=== PATIENT | female | born 1960 | race Caucasian/White ===

== ENCOUNTER 2022-05-26 12:05 | Emergency (ER) | payer MEDICARE ==
[2022-05-26 12:33] VITALS: BP 163/87; PULSE 68; O2SAT 96
--- NOTE | 2022-05-26 12:39 | ERPHSYRPT ---
- History of Present Illness Time Seen by Provider: 05/26/22 12:37 Source: patient Exam Limitations: no limitations Patient Subjective Stated Complaint: pt here for pain to right 4th toe for 3 weeks now, after hitting it on table Triage Nursing Assessment: pt alert, resp easy.skin w/d/p, has slight swelling to 5th right toe, no bruising noted Physician History: pt here for pain to right 4th toe for 3 weeks now, after hitting it on table Method of Injury: direct blow Occurred: last week Quality: constant Severity of Pain-Max: mild Severity of Pain-Current: mild Lower Extremities Pain: 4th toe: right Modifying Factors: Improves With: nothing Associated Symptoms: none Allergies/Adverse Reactions: Penicillins Allergy (Verified 05/26/22 12:33) Home Medications: Fluticasone/Salmeterol 500/50* [Advair 500-50 Diskus] 1 each IH DAILY 05/26/22 [History] Montelukast Sodium 10 mg [Singulair 10 MG] 10 mg PO DAILY 05/26/22 [History] Omeprazole 20 mg PO BID 05/26/22 [History] Pramipexole Di-HCl [Pramipexole Dihydrochloride] 0.25 mg PO DAILY 05/26/22 [History] Pregabalin 100 mg PO DAILY 05/26/22 [History] dilTIAZem HCL [Diltiazem ER] 1 ea DAILY 05/26/22 [History] Hx Tetanus, Diphtheria Vaccination/Date Given: No Hx Influenza Vaccination/Date Given: No Hx Pneumococcal Vaccination/Date Given: No Immunizations Up to Date: Yes Travel Risk - International Travel Have you traveled outside of the country in past 3 weeks: No - Coronavirus Screening Are you exhibiting any of the following symptoms?: No Close contact with a COVID-19 positive Pt in past 14-21 Days: No - Vaccine Status Have you recieved a Covid-19 vaccination: Yes 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[employer] - Vaccination Dates Date of 2cond Vaccination (if applicable): 2020 - Review of Systems Constitutional: No Symptoms Eyes: No Symptoms Ears, Nose, & Throat: No Symptoms Respiratory: No Symptoms Cardiac: No Symptoms Abdominal/Gastrointestinal: No Symptoms Genitourinary Symptoms: No Symptoms Musculoskeletal: Joint Swelling (right foot) - Past Medical History Pertinent Past Medical History: Yes Cardiac History: Arrhythmia - Past Surgical History Past Surgical History: Yes - Social History Smoking Status: Never smoker Exposure to second hand smoke: No Drug Use: none Patient Lives Alone: No - Nursing Vital Signs Nursing Vital Signs: Initial Vital Signs Temperature 98.0 F 05/26/22 12:31 Pulse Rate 68 05/26/22 12:31 Respiratory Rate 18 05/26/22 12:31 Blood Pressure 163/87 05/26/22 12:31 O2 Sat by Pulse Oximetry 96 05/26/22 12:31 Pain Scale Pain Intensity 6 - Physical Exam General Appearance: no apparent distress Eyes, Ears, Nose, Throat Exam: normal ENT inspection Neck Exam: normal inspection Cardiovascular/Respiratory Exam: chest non-tender Gastrointestinal/Abdominal Exam: non-tender Back Exam: normal inspection Hips Exam: bilateral: non-tender Legs Exam: bilateral leg: non-tender Knees Exam: bilateral knee: non-tender Ankle Exam: bilateral ankle: non-tender Foot Exam: right foot: soft tissue tenderness Neuro/Tendon Exam: normal sensation SpO2: 96 - Course Nursing assessment & vital signs reviewed: Yes - Radiology Exams Foot X-ray Interpretation: Reviewed by me, Negative, No Fracture Ordered Tests: Active Orders 24 hr Category Date Time Status FOOT (MINIMUM 3 VIEWS) Stat Exams 05/26/22 12:30 Taken - Progress Progress: improved Counseled pt/family regarding: diagnosis, need for follow-up, rad results - Departure Departure Disposition: Home Clinical Impression: Injury of right foot including toes Qualifiers: Encounter type: initial encounter Qualified Code(s): S99.921A - Unspecified injury of right foot, initial encounter Condition: Stable Critical Care Time: No Referrals: BUCK BAUMANN MD [ACTIVE STAFF] - Follow up/PCP as directed Instructions: Toe Injury (DC) Additional Instructions: Discharge/Care Plan MARIA R LEBRON was seen on 05/26/22 in the Emergency Room. The patient was counseled regarding Diagnosis,Lab results, Imaging studies, need for follow up and when to return to the Emergency Room. Prescriptions given: Discharge Note I have spoken with the patient and/or caregivers. I have explained the patient's condition, diagnosis and treatment plan based on the information available to me at this time. I have answered the patient's and/or caregiver's questions and addressed any concerns. The patient and/or caregivers have as good understanding of the patient's diagnosis, condition and treatment plan as can be expected at this point. The vital signs have been stable. The patient's condition is stable and appropriate for discharge from the emergency department. The patient will pursue further outpatient evaluation with the primary care physician or other designated or consulting physician as outlined in the discharge instructions. The patient and/or caregivers are agreeable to this plan of care and follow-up instructions have been explained in detail. The patient and/or caregivers have received these instruction. The patient/and or caregivers are aware that any significant change in condition or worsening of symptoms should prompt an immediate return to this or the closest emergency department or call 911. MARIA R LEBRON was seen on 05/26/22 n the Emergency Room. At that time you were treated for an emergent condition, during your visit Laboratory, Radiology and/or other procedures may have been ordered. It is very important that you follow-up with your Primary Care Physician within the next 24-48 hours to review your Emergency Room visit and the final results of testing that was ordered. Some test results such as Urine Cultures, Blood Cultures, and other cultures if ordered will not be finalized for 24-48 hours. If you do not have a Primary Care Provider please call the medical records department at [phone] ext [phone] to obtain a copy of your results or you may sign into our patient portal to obtain these results by visiting us @ [email or web address] and completing the following steps: 1. Click on the Patient Portal link 2. Click the Patient Self Enrollment Link to complete the enrollment form and entering your 3. Once the enrollment form is completed you will receive an email with a temporary ID and password at the email address you provided. 4. Next choose a user name and password. Your user name must be at least 4 characters long and your password must be at least 4 characters long. 5. Choose a security question from the list and provide your answer to the question. If you already have signed into the Health Portal you may access your Health Care Information 03/02 by the following steps: 1. Login to our website @ [email or web address] 2. Enter your original user name and password. FAQS The [facility] Health Portal is an online tool that contains your Lab Results, Radiology Reports, Visit History, Discharge Instructions and Health Summary Lab and Radiology Results will not be available for 72 hours on the portal. The Portal is a secure site, passwords are encryted and URLs are re-written so they cannot be copied and pasted. You and authorized family members are the only ones who can access your Portal. Also there is a timeout feature that protects your information if you leave the Portal page open. If you have technical difficulty please use the Contact Us link on the page this will allow you to submit any questions you have regarding the Portal or you may contact the Medical Record Department at [phone] ext [phone].
--- NOTE | 2022-05-26 18:02 | XRAY ---
Indication: Pain. No known injury. Comparison: None 3 nonweightbearing views right foot demonstrates osteopenia and nondisplaced fracture 5th proximal phalanx with soft tissue swelling. No other bony, articular, or soft tissue abnormalities. Comment: Fracture not reported by the interpreting ER clinician. Telephone report was given Dr. Earl at 1756 hrs. on May 26, 2022.
== END 2022-05-26 12:47 | disposition home or self-care (01) ==
LOC: ED 12:05
DX: S99.921A Unspecified injury of right foot, initial encounter (principal); W22.03XA Walked into furniture, initial encounter; Z79.899 Other long term (current) drug therapy
CPT/HCPCS: 73630; 99282

== ENCOUNTER 2022-08-30 07:36 | Day surgery (SDC) | payer MEDICARE ==
[2022-08-30] MEDS ORDERED: CLINDAMYCIN-D5W 900 MG/50 ML*** 900 MG/50 ML BAG IV ONE (07:47)
[2022-08-30] MEDS ORDERED: Lactated Ringers 1,000 ML IV ONE (07:47)
[2022-08-30] MEDS ORDERED: CLINDAMYCIN-D5W 900 MG/50 ML*** 900 MG/50 ML BAG IV STA (07:50)
[2022-08-30] MEDS ORDERED: Lactated Ringers 1,000 ML IV SCH (08:00)
[2022-08-30] MEDS ORDERED: Xylocaine 1% Vial 30 ML PF IJ ONE (08:21)
[2022-08-30] MEDS ORDERED: Marcaine Mpf 0.5% Vial 30 Ml ONE (08:21)
[2022-08-30 08:42] LABS: Hemoglobin 13.3 g/dL (12.0-16.0); Mean Cell Volume 86.8 fL (78-100); Mean Corpuscular Hemoglobin 27.5 pg (26-32); Mean Corpuscular Hgb Concent. 31.7 g/dL (32-36); Mean Platelet Volume 10.7 fL (7.5-11.0); Platelet Count 299 x10^3/uL (150-450); Red Blood Count 4.84 x10^6/uL (4.1-5.4); Red Cell Distribution Width 13.6 % (11.5-14.0); White Blood Count 6.7 x10^3/uL (4.0-10.5)
[2022-08-30 08:55] LABS: ALKALINE PHOSPHATASE 135 U/L (38-126); BLOOD UREA NITROGEN 15 mg/dL (7-17); CHLORIDE 107 mmol/L (98-107); Calcium 8.8 mg/dL (8.4-10.2); Carbon Dioxide 25 mmol/L (22-30); Creatinine 1 0.85 mg/dL (0.52-1.04); EST GLOMERULAR FILTRATION RATE > 60.0 ML/MIN; Glucose 118 mg/dL (74-106); Potassium 4.5 mmol/L (3.5-5.1); SGOT/AST 27 U/L (14-36); SGPT/ALT 20 U/L (0-35); SODIUM 140 mmol/L (137-145)
[2022-08-30] MEDS ORDERED: DIPRIVAN 200 MG/20 ML IV ONE ×4 (08:57→11:10)
[2022-08-30] MEDS ORDERED: SUBLIMAZE 100 MCG/2 ML ONE ×2 (08:58→11:08)
[2022-08-30] MEDS ORDERED: Versed 2 MG/2 ML Injection ONE (08:58)
[2022-08-30] MEDS ORDERED: Xylocaine-Mpf 2% 5 Ml Vial ONE (08:58)
[2022-08-30] MEDS ORDERED: PHENYLEPHRINE HCL ONE (10:23)
--- NOTE | 2022-08-30 11:56 | XRAY ---
Indication: Excision bone left 5th metatarsal. Peroneus brevis tendon transfer to base 5th metatarsal. Intraoperative fluoroscopy provided for 47 seconds. 11 digital spot images submitted for interpretation ultimately demonstrates tunneling base 5th metatarsal with orthopedic button in situ. Correlate with intraoperative findings/report.
[2022-08-30 13:32] VITALS: BP 130/66; PULSE 60; O2SAT 96
--- NOTE | 2022-08-30 14:39 | XRAY ---
47 seconds of fluoroscopy was used in surgery for an excision of bone left 5th metatarsal and peroneus brevis tendon transfer to base 5th metatarsal.
--- NOTE | 2022-09-02 12:54 | OP ---
SURGERY DATE/TIME: 08/30/2022 0958 PREOPERATIVE DIAGNOSES: 1) Left nonunion fifth metatarsal fracture. 2) Pain left foot. 3) Peroneus brevis rupture. POSTOPERATIVE DIAGNOSES: 1) Left nonunion fifth metatarsal fracture. 2) Pain left foot. 3) Peroneus brevis rupture. PROCEDURES: 1) Excision of metatarsal bone. 2) Peroneus brevis tendon advancement with transfer. SURGEON: Dalton Allred DPM. OIL HEATER OPERATOR: None. ANESTHESIA: Monitored anesthesia care with preoperative ankle block. HEMOSTASIS: Thigh tourniquet set to 300 mm of Mercury for 46 total tourniquet minutes. ESTIMATED BLOOD LOSS: Minimal. INJECTABLES: 30 cc of 1:1 mixture of 1% lidocaine plain and 0.5% bupivacaine plain. INDICATION FOR SURGERY: Vickie is a very pleasant 62-year-old female who presented to my service for a fracture of the fifth metatarsal of the left foot. The patient does have a positive history of vaping and discussion in regards to quitting in order to expedite bone healing were provided at a certain point giving her attempt to heal. The patient has had pain over the course of the last several weeks with attempt in transition from delayed healing to nonhealing to potentially show some signs of healing. However at this time the patient has had no success due to developing of healthy callous between those two fragments and has had continued if not worsening pain to the left lower extremity. At this time the patient would like to proceed with surgical intervention. The patient had been discussed the plan and at this time and would like to proceed with surgical intervention. The risk of a potential continued nonunion with the use of a screw in order to fixate as well as calcaneal autograft advantageous to the patient's interest. Discussion with the patient other options was to proceed with removal of the bone fragment and tapering of the peroneus brevis tendon into fifth metatarsal base under tension in order to allow this to heal. The patient understands that she will have to be nonweightbearing approximately six to eight weeks for this to be successful but hopefully this provides relief from her pain which is the desired goal for this procedure. The patient understands all risks, complications and benefits of the procedure including but not limited to infection, hematoma, seroma, possibility of delayed skin healing, nonskin healing. Possibility of sural nerve injury, possibility of failure of surgical intervention, possibility of loss of motor function and catastrophic failure surgical intervention. The patient understands all of this and wishes to proceed. Plenty of time was allowed for her to ask questions which were answered to the patient's apparent satisfaction. It is with this we decided to proceed with surgical intervention. DESCRIPTION OF PROCEDURE AND FINDINGS: The patient is brought into the OR and placed on the OR table in the supine position. General anesthesia was administered and once the patient was sedated a well-padded thigh tourniquet was applied to the patient's left thigh. From this state the patient was repositioned laid in lateral making sure to pad prominent sites. Following this, the left lower extremity was prepped and draped in typical sterile fashion. At this time under fluoroscopic guidance a skin marker was utilized to plan out the surgical incisions prior to inflating the tourniquet. At this time the Esmarch was utilized to exsanguinate the leg and the tourniquet was inflated to 300 mm of Mercury. At this time incision was made in curvilinear fashion to the fracture site and following course of the peroneus brevis tendon. Following this, excision of the fifth metatarsal base was performed this was handed off the field and sent for pathologic assessment under the name "nonunion". Following this the tendon was inspected. There was diseased portion of the tendon distally which was debrided in the process of anchoring the tendon. A FiberLoop was then utilized with BroadBand suture to interlock the peroneus brevis tendon this was then utilized to retubularize the diseased portion of the tendon. Following this a 2.9 mm Tagalog was drilled under fluoroscopic guidance on multiple views and a 1.5 BroadBand suture was utilized to advance the tendon into the drill site in order to get a bone to tendon interface this was performed under tension with a suture on the medial cortex of the fifth metatarsal in order to gain compression in this site. The patient's foot was held in eversion for the remainder of the procedure. Copious amounts of sterile saline were then utilized to flush the surgical site. 4-0 Monocryl was utilized to coapt the subcutaneous edges and 3-0 Nylon was utilized in horizontal mattress-type fashion to coapt the skin. A dressing consisting of Betadine, Adaptic, 4x4, Kerlix and a well-padded posterior splint with Sugar-Tong with the marketing analytics manager slightly shortened was then applied. Tourniquet was let down at this time at 46 total tourniquet minutes. Estimated blood loss was less than 5 cc. The patient was then reversed from anesthesia and returned to the postoperative anesthesia care unit with vital signs stable and vascular status intact. The patient handled the anesthesia as well as the procedure without significant complication. Postoperative orders as indicated in the patient's discharge chart.
== END 2022-08-30 13:55 | disposition home or self-care (01) ==
LOC: SDC 07:36
PROVIDERS: ATTEND Podiatrist Foot & Ankle Surgery
DX: S92.352A Displaced fracture of fifth metatarsal bone, left foot, initial encounter for closed fracture (principal); M79.672 Pain in left foot; S86.312A Strain of muscle(s) and tendon(s) of peroneal muscle group at lower leg level, left leg, initial encounter
CPT/HCPCS: 27658; 28288; 36415; 73630; 76000; 80053; 85027; 93005; C1713; J2001; J2250; J2370; J2704; J3010

== ENCOUNTER 2022-11-01 15:00 | Emergency (ER) | payer MEDICARE ==
--- NOTE | 2022-11-01 15:03 | ERPHSYRPT ---
- History of Present Illness Time Seen by Provider: 11/01/22 15:03 Source: patient Exam Limitations: no limitations Physician History: This is an obese 62-year-old right-handed white female who presents with a 2 to 3-day history of slightly enlarging, tender left volar wrist subcutaneous mass that lies very near to the radial artery at the wrist. Patient has not suffered any recent injury or blood draws from the site. She is never had anything like this before. She has full range of motion. However, she feels this is getting slightly bigger and there is tenderness present. Patient has a history of hypertension, gastroesophageal reflux disease, TIA, peripheral neuropathy, asthma, arrhythmia (on diltiazem) and fibromyalgia. Occurred: days ago Method of Injury: other Quality: aching Severity of Pain-Max: mild Severity of Pain-Current: mild Extremities Pain Location: wrist: left (1.5 diameter subcutaneous mass volar aspect) Modifying Factors: Improves With: movement (Worsens), other (Palpation worsens) Associated Symptoms: none Allergies/Adverse Reactions: Penicillins Allergy (Verified 11/01/22 15:08) Home Medications: Fluticasone/Salmeterol 500/50* [Advair 500-50 Diskus] 1 each IH DAILY 1 07/26/21 [History] Montelukast Sodium 10 mg [Singulair 10 MG] 10 mg PO DAILY 05/26/22 [History] Omeprazole 20 mg PO BID 05/26/22 [History] Pramipexole Di-HCl [Pramipexole Dihydrochloride] 0.25 mg PO TID 05/26/22 [History] Pregabalin 100 mg PO TID 05/26/22 [History] Albuterol 8 gm Mdi Hfa [Ventolin Hfa MDI] 2 puffs IH UD 08/23/22 [History] Cyanocobalamin (Vitamin B-12) [Vitamin B12] 2,500 mcg PO DAILY 08/23/22 [History] Escitalopram Oxalate [Lexapro] 20 mg PO DAILY 08/23/22 [History] Liraglutide [Victoza 2-Karthik] 0.6 mg SQ DAILY 08/23/22 [History] Metoprolol Succinate 50 mg [Toprol Xl 50 MG] 50 mg PO HS 08/23/22 [History] dilTIAZem HCL [Diltiazem 24Hr ER (Xr)] 180 mg PO DAILY 08/23/22 [History] Hx Tetanus, Diphtheria Vaccination/Date Given: No Hx Influenza Vaccination/Date Given: No Hx Pneumococcal Vaccination/Date Given: No Travel Risk - International Travel Have you traveled outside of the country in past 3 weeks: No - Coronavirus Screening Are you exhibiting any of the following symptoms?: No Close contact with a COVID-19 positive Pt in past 14-21 Days: No - Vaccine Status Have you recieved a Covid-19 vaccination: Yes 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[employer] - Vaccination Dates Date of 2cond Vaccination (if applicable): 2020 - Review of Systems Constitutional: No Symptoms Eyes: No Symptoms Ears, Nose, & Throat: No Symptoms Respiratory: No Symptoms Cardiac: No Symptoms Abdominal/Gastrointestinal: No Symptoms Genitourinary Symptoms: No Symptoms Musculoskeletal: Other (Tender 1.5 cm diameter subcutaneous mass in the region of the left radial artery left wrist) Skin: No Symptoms Neurological: No Symptoms Psychological: No Symptoms Endocrine: No Symptoms Hematologic/Lymphatic: No Symptoms Immunological/Allergic: No Symptoms All Other Systems: Reviewed and Negative - Past Medical History Pertinent Past Medical History: Yes Neurological History: Peripheral Neuropathy, TIA ENT History: No Pertinent History Cardiac History: Arrhythmia, Hypertension Respiratory History: Asthma, Bronchitis Endocrine Medical History: Diabetes Type II Musculoskeletal History: Arthritis, Fibromyalgia GI Medical History: GERD, Other History: No Pertinent History Psycho-Social History: Depression Female Reproductive Disorders: No Pertinent History Other Medical History: Patient reports breaking multiple toes L foot. L knee injury with conservative tx including therapy. A-fib. Previous loop recorder which was removed. Back sx x2 (2021 was last procedure) sacral/lumbar fusion. - Past Surgical History Past Surgical History: Yes Neuro Surgical History: No Pertinent History Cardiac: Other Respiratory: No Pertinent History Gastrointestinal: Hernia Repair Genitourinary: No Pertinent History Musculoskeletal: Orthopedic Surgery Female Surgical History: Tubal Ligation Other Surgical History: Back and Hip. implanted cardiac monitoring device,implanted and removed. - Social History Smoking Status: Former smoker Exposure to second hand smoke: No Drug Use: none Patient Lives Alone: No - Nursing Vital Signs Nursing Vital Signs: Initial Vital Signs Temperature 98.4 F 11/01/22 15:09 Pulse Rate 66 11/01/22 15:09 Respiratory Rate 17 11/01/22 15:09 Blood Pressure 141/71 11/01/22 15:09 O2 Sat by Pulse Oximetry 96 11/01/22 15:09 Pain Scale Pain Intensity [Left Wrist] 3 Pain Intensity 3 - Physical Exam General Appearance: no apparent distress, alert, anxiety, obese Eyes, Ears, Nose, Throat Exam: normal ENT inspection, moist mucous membranes Neck Exam: normal inspection, non-tender, supple, full range of motion Cardiovascular/Respiratory Exam: chest non-tender, no respiratory distress Abdominal Exam: non-tender Back Exam: normal inspection Shoulder Exam: normal inspection Elbow/Forearm Exam: normal inspection Wrist Exam: soft tissue tenderness (Left wrist 1.5 cm diameter subcutaneous mass volar aspect with tenderness. No cellulitis or infection. ? Pulsation versus referred pulsation) Hand Exam: normal inspection, non-tender, no evidence of injury, normal ROM Neuro/Tendon Exam: normal sensation, normal motor functions, normal tendon functions, responds to pain, no evidence tendon injury Mental Status Exam: alert, oriented x 3, cooperative Skin Exam: normal color, warm, dry SpO2 Interpretation: normal O2 Delivery: Room Air - Course Nursing assessment & vital signs reviewed: Yes Ordered Tests: Active Orders 24 hr Category Date Time Status EXTREMITY NON VASCULAR [US] Stat Exams 11/01/22 15:37 Ordered - Progress Progress: pain not gone completely Progress Note: 11/01/22 16:03 Ultrasound of the left wrist shows a ganglion cyst with nearby radial artery. No aneurysm present. The impression was provided to be by the substance abuse technician. I did not interpret this study. This patient's medical issue is 1 of low complexity. The level of complexity and the work-up performed is based on review of the patient's past medical history, medication list, medication allergy list, history of present illness and physical findings on examination. The work-up includes venous ultrasound of the left wrist. The report was provided to me by the substance abuse technician. No aneurysm is present. The patient has a ganglion cyst. Discharge instructions is to have the patient follow-up in the [facility] orthopedic clinic on 11/04/2022 at 8 AM. Over the weekend patient may use ice pack, Tylenol and ibuprofen for pain control. Counseled pt/family regarding: diagnosis, need for follow-up, rad results Medical Desision Making - Discussion of managment Reviewed:: Test results Agreed on:: Treatment plan, need for follow-up - Diagnostic Testing Radiological Interpretation: Reviewed by me, Teleradiologist Report - Risk of complications Minimal Risk: Minimal risk of morbidity - Departure Departure Disposition: Home Clinical Impression: Ganglion cyst of volar aspect of left wrist Condition: Stable Critical Care Time: No Referrals: GERALDINE EGAN, [Primary Care Provider] - Follow up/PCP as directed Additional Instructions: Ice pack to area 3 times a day for the next 48 hours. Use Tylenol and ibuprofen for pain control. Follow-up at 8 AM at the [facility] orthopedic clinic on 11/04/2022. It is a walk-in clinic. You do not need to have an appointment.
[2022-11-01 16:14] VITALS: BP 127/61; PULSE 64; O2SAT 97
--- NOTE | 2022-11-01 16:16 | XRAY ---
Indication: Subcutaneous mass. Targeted soft tissue ultrasound lateral left wrist demonstrates 3 tightly clustered subcutaneous cysts, largest 7.5 mm and smallest 4.2 mm. No other solid/cystic mass.
== END 2022-11-01 16:14 | disposition home or self-care (01) ==
LOC: ED 15:00
DX: M67.432 Ganglion, left wrist (principal); M25.532 Pain in left wrist; I10 Essential (primary) hypertension; E11.42 Type 2 diabetes mellitus with diabetic polyneuropathy; Z79.85 Long-term (current) use of injectable non-insulin antidiabetic drugs; Z79.899 Other long term (current) drug therapy
CPT/HCPCS: 76881; 99282

== ENCOUNTER 2023-02-25 05:53 | Day surgery (SDC) | payer MEDICARE ==
[2023-02-25] MEDS ORDERED: Lactated Ringers 1,000 ML IV SCH (06:00)
[2023-02-25 06:28] VITALS: RESP 16
[2023-02-25] MEDS ORDERED: Xylocaine-Mpf 2% 5 Ml Vial ONE (07:34)
[2023-02-25] MEDS ORDERED: DIPRIVAN 200 MG/20 ML IV ONE (07:34)
[2023-02-25 08:10] VITALS: BP 122/50; PULSE 65; TEMP 97.5; O2SAT 95
--- NOTE | 2023-02-25 16:31 | OP ---
SURGERY DATE: 02/25/2023 SURGERY TIME: 732 PREOPERATIVE DIAGNOSIS: 1. GASTROESOPHAGEAL REFLUX. 2. DIABETES. POSTOPERATIVE DIAGNOSIS: 1. DIABETIC GASTROPARESIS. PROCEDURE: 1. Esophagogastroduodenoscopy. SURGEON: Dr. Reich. ANESTHESIA: MAC. Medications given by the Anesthesia Department. BRIEF HISTORY: The patient is a 63 year-old white female with history of diabetes. She reports that food seems to be getting stuck in her stomach and she has had some problems with reflux as well which has been going on for about a year and it is noted in her chart record the patient is taking 325 mg of aspirin as well. The patient was described the risks of the procedure including the risk of perforation, phlebitis, untoward reaction to medication, bleeding, missed lesions, sore throat, and vocal cord injury. The patient verbalized her understanding and desired to have the procedure performed. DESCRIPTION OF PROCEDURE: The patient was given the medications by the Anesthesia Department. She had continuous pulse oximetry, ECG monitoring, and intermittent BP monitoring during the examination. She was placed in the left lateral decubitus position. A bite block was placed and the flexible Olympus gastroscope was used to intubate the oropharynx. A view of the larynx was obtained and was normal. The scope was easily introduced in the esophagus which appeared to be normal throughout its length. The stomach was entered where immediately we saw large amounts of residual mostly liquid materials. We were able to introduce the scope further into the stomach. As we followed between the gastric mucosa and retained food stuffs to the pylorus which was intubated. The duodenum was inspected and found to be normal. The scope was withdrawn towards the stomach. With insufflation, we were able to obtain retroflex view of the stomach which revealed no evidence of any hiatal hernia. No other obvious evidence of mucosal abnormalities was present. The scope was removed from the patient afterwards who tolerated the procedure well and was sent back to outpatient recovery in good condition.
== END 2023-02-25 08:16 | disposition home or self-care (01) ==
LOC: SDC 05:53
PROVIDERS: ATTEND Family Medicine
DX: E11.43 Type 2 diabetes mellitus with diabetic autonomic (poly)neuropathy (principal); K31.84 Gastroparesis; K21.9 Gastro-esophageal reflux disease without esophagitis; E11.9 Type 2 diabetes mellitus without complications
CPT/HCPCS: 82947; J2704

== ENCOUNTER 2023-07-15 13:16 | Observation (INO) | payer MEDICARE ==
[2023-07-15 13:51] LABS: Absolute Neutrophil Ct (ANC) 5.82 x10^3/uL (1.4-6.9); BASOPHIL % 0.4 % (0.0-0.4); Basophil (Absolute #) 0.03 x10^3/uL (0-0.4); Eosinophil (Absolute #) 0.16 x10^3/uL (0-0.5); Hematocrit 44.3 % (35-47); Hemoglobin 14.3 g/dL (12.0-16.0); IMMATURE GRAN # 0.03 x10^3u/L (0.00-0.03); IMMATURE GRAN % 0.4 % (0.00-0.4); Lymphocyte (Absolute #) 1.31 x10^3/uL (1.0-4.6); Lymphocytes % 16.3 % (24.0-44.0); Mean Cell Volume 85.9 fL (78-100); Mean Corpuscular Hemoglobin 27.7 pg (26-32); Mean Corpuscular Hgb Concent. 32.3 g/dL (32-36); Mean Platelet Volume 10.2 fL (7.5-11.0); Monocyte (Absolute #) 0.68 x10^3/uL (0.0-1.3); Monocytes % 8.5 % (0.0-12.0); Neutrophil % 72.4 % (36.0-66.0); Platelet Count 290 x10^3/uL (150-450); Red Blood Count 5.16 x10^6/uL (4.1-5.4); Red Cell Distribution Width 14.2 % (11.5-14.0)
--- NOTE | 2023-07-15 13:55 | ERPHSYRPT ---
- History of Present Illness Time Seen by Provider: 07/15/23 13:22 Source: patient Exam Limitations: no limitations Patient Subjective Stated Complaint: pt states she had a head cold for the past couple days. pt states that today she began to be short of breath Triage Nursing Assessment: pt ambulated into the er; pt is axo x4; c/o SOB; audible wheezing present; rt anterior/ posterior throught wheezing and course lung sounds; SOB, labored breathing; no cough present at time of arrival; afebrile; hypertensive; skin PDW Physician History: Patient is a 63-year-old female history of COPD presents to our ED for evaluatio n of a URI that has progressed into shortness of breath. No chest pain no nausea vomiting or diaphoresis. Symptoms have been progressive. Symptoms are moderate in intensity. Symptoms are worse with exertion symptoms improved with rest. Patient voices no other complaints or concerns at this time. Portions of this note were created with voice recognition technology. There may be grammatical, spelling, punctuation or sound alike errors Timing/Duration: day(s) (3 days) Activities at Onset: activity Severity of Dyspnea-Max: moderate Severity of Dyspnea-Current: mild Possible Cause: unknown cause Modifying Factors: Improves With: activity Associated Symptoms: wheezing Allergies/Adverse Reactions: Penicillins Allergy (Verified 07/15/23 13:17) Home Medications: Fluticasone/Salmeterol 500/50* [Advair 500-50 Diskus] 1 each IH DAILY 05/26/22 [History] Montelukast Sodium 10 mg [Singulair 10 MG] 10 mg PO DAILY 05/26/22 [History] Omeprazole 20 mg PO BID 05/26/22 [History] Pramipexole Di-HCl [Pramipexole Dihydrochloride] 0.25 mg PO TID 05/26/22 [Hi story] Pregabalin 100 mg PO TID 05/26/22 [History] Albuterol 8 gm Mdi Hfa [Ventolin Hfa MDI] 2 puffs IH UD 08/23/22 [History] Escitalopram Oxalate [Lexapro] 20 mg PO DAILY 08/23/22 [History] Liraglutide [Victoza 2-Karthik] 0.6 mg SQ DAILY 08/23/22 [History] Metoprolol Succinate 50 mg [Toprol Xl 50 MG] 50 mg PO HS 08/23/22 [History] dilTIAZem HCL [Diltiazem 24Hr ER (Xr)] 180 mg PO DAILY 08/23/22 [History] Semaglutide [Ozempic] 0.25 mg SQ WEEKLY 07/15/23 [History] Hx Tetanus, Diphtheria Vaccination/Date Given: Yes Hx Influenza Vaccination/Date Given: Yes Hx Pneumococcal Vaccination/Date Given: Yes Travel Risk - International Travel Have you traveled outside of the country in past 3 weeks: No - Coronavirus Screening Are you exhibiting any of the following symptoms?: Yes Symptoms: Fever, Cough: New Onset, Shortness of Breath Close contact with a COVID-19 positive Pt in past 14-21 Days: No - Vaccine Status Have you recieved a Covid-19 vaccination: Yes [employer]: [employer] - Vaccination Dates Date of 2cond Vaccination (if applicable): 2020 - Review of Systems Constitutional: No Symptoms, No Fever, No Chills Eyes: No Symptoms Ears, Nose, & Throat: No Symptoms Respiratory: No Symptoms, No Cough, No Dyspnea Cardiac: No Symptoms, No Chest Pain, No Edema, No Syncope Abdominal/Gastrointestinal: No Symptoms, No Abdominal Pain, No Nausea, No Vomiting, No Diarrhea Genitourinary Symptoms: No Symptoms, No Dysuria Musculoskeletal: No Symptoms, No Back Pain, No Neck Pain Skin: No Symptoms, No Rash Neurological: No Symptoms, No Dizziness, No Focal Weakness, No Sensory Changes Psychological: No Symptoms Endocrine: No Symptoms Hematologic/Lymphatic: No Symptoms Immunological/Allergic: No Symptoms All Other Systems: Reviewed and Negative - Past Medical History Pertinent Past Medical History: Yes Neurological History: Peripheral Neuropathy, TIA ENT History: No Pertinent History Cardiac History: Arrhythmia, Hypertension Respiratory History: Asthma, Bronchitis, COPD Endocrine Medical History: Diabetes Type II Musculoskeletal History: Arthritis, Fibromyalgia GI Medical History: GERD, Other History: No Pertinent History Psycho-Social History: Depression Female Reproductive Disorders: No Pertinent History Other Medical History: Patient reports breaking multiple toes L foot. L knee injury with conservative tx including therapy. A-fib. Previous loop recorder which was removed. Back sx x2 (2021 was last procedure) sacral/lumbar fusion. - Past Surgical History Past Surgical History: Yes Neuro Surgical History: No Pertinent History Cardiac: Other Respiratory: No Pertinent History Gastrointestinal: Hernia Repair Genitourinary: No Pertinent History Musculoskeletal: Orthopedic Surgery Female Surgical History: Tubal Ligation Other Surgical History: Back and Hip. implanted cardiac monitoring device ,implanted and removed. abcess removed in throat - Social History Smoking Status: Former smoker Exposure to second hand smoke: No Drug Use: none Patient Lives Alone: No - Nursing Vital Signs Nursing Vital Signs: Initial Vital Signs Temperature 98.8 F 07/15/23 13:18 Pulse Rate 95 H 07/15/23 13:18 Respiratory Rate 28 H 07/15/23 13:18 Blood Pressure 190/91 07/15/23 13:18 O2 Sat by Pulse Oximetry 97 07/15/23 13:18 Pain Scale Pain Intensity 5 - Physical Exam General Appearance: no apparent distress, alert Eye Exam: PERRL/EOMI Ears, Nose, Throat Exam: hearing grossly normal, normal ENT inspection, normal pharynx Neck Exam: normal inspection, supple, full range of motion Respiratory Exam: diminished breath sounds, rhonchi, wheezing Cardiovascular/Chest Exam: normal heart sounds, regular rate/rhythm Abdominal/Gastrointestinal Exam: soft, No tenderness, No distention, No mass Extremity Exam: non-tender, normal range of motion, normal inspection, no calf tenderness, no pedal edema Neurologic Exam: alert, oriented x 3, cooperative, glassware verifier II-XII nml as tested, sensation nml, No motor deficits Skin Exam: normal color, warm, No dry Lymphatic Exam: No adenopathy SpO2 Interpretation: normal SpO2: 97 O2 Delivery: Room Air - Course Nursing assessment & vital signs reviewed: Yes EKG Interpreted by Me: RATE (89), Sinus Rhythm, NORMAL AXIS, NORMAL INTERVALS - CT Exams Chest CT Interpretation: Tele-radiologist Report (Negative for PE. Left lower lobe opacity, fatty liver, splenomegaly small hiatal hernia atherosclerotic disease bony degenerative changes) Ordered Tests: Active Orders 24 hr Category Date Time Status Web Applications Architect STAT Care 07/15/23 13:23 Active EKG-ER Only STAT Care 07/15/23 13:23 Active IV Insertion STAT Care 07/15/23 13:23 Active Pulse Oximetry (ED) STAT Care 07/15/23 13:23 Active CHEST WITH CONTRAST [CT] Stat Exams 07/15/23 14:15 Completed BLOOD CULTURE Stat Lab 07/15/23 13:47 Received CBC W DIFF Stat Lab 07/15/23 13:35 Completed CMP Stat Lab 07/15/23 13:35 Completed D-DIMER QUANTITATIVE Stat Lab 07/15/23 13:35 Completed NT PRO BNPII Stat Lab 07/15/23 13:35 Completed TROPONIN Q4H Lab 07/15/23 13:35 Completed TROPONIN Q4H Lab 07/15/23 17:30 Ordered TROPONIN Q4H Lab 07/15/23 21:30 Ordered UA W/RFX UR CULTURE Stat Lab 07/15/23 15:27 Ordered Transfer Order Routine Transfer 07/15/23 Ordered Medication Summary Generic Name Dose Route Start Last Admin Trade Name Freq PRN Reason Stop Dose Admin Doxycycline Hyclate 100 mg/ 100 mls @ 100 mls/hr 07/15/23 22:00 Dextrose IV 08/14/23 21:59 Q12HT SIRISHA Discontinued Medications Generic Name Dose Route Start Last Admin Trade Name Freq PRN Reason Stop Dose Admin Albuterol/Ipratropium 3 ml 07/15/23 15:22 07/15/23 15:43 Ipratropium/Albuterol Sulfate 3 Ml Ampul.Neb IH 07/15/23 15:23 3 ml STAT ONE Administration Albuterol/Ipratropium Confirm 07/15/23 15:39 Ipratropium/Albuterol Sulfate 3 Ml Ampul.Neb Administered 07/15/23 15:40 Dose 3 ml IH .STK-MED ONE Methylprednisolone Sodium 0 mg 07/15/23 15:21 07/15/23 15:28 Succinate 125 mg/ Sterile IV 07/15/23 15:22 125 mg Water 2 ml STAT ONE Administration Methylprednisolone Sodium Succinate Confirm 07/15/23 15:25 Methylprednis Sod Succ 125 Mg/2 Ml Vial Administered 07/15/23 15:26 Dose 125 mg .ROUTE .STK-MED ONE Sterile Water Confirm 07/15/23 15:25 Water For Injection,Sterile 10 Ml Vial Administered 07/15/23 15:26 Dose 10 ml IJ .STK-MED ONE Lab/Rad Data: Laboratory Result Diagrams 07/15/23 13:35 07/15/23 13:35 Laboratory Results 07/15/23 07/15/23 07/15/23 Range/Units 13:41 13:35 13:35 WBC (4.0-10.5) x10^3/uL RBC (4.1-5.4) x10^6/uL Hgb (12.0-16.0) g/dL Hct (35-47) % MCV (78-100) fL MCH (26-32) pg MCHC (32-36) g/dL RDW (11.5-14.0) % Plt Count (150-450) x10^3/uL MPV (7.5-11.0) fL Gran % (36.0-66.0) % Immature Gran % (Auto) (0.00-0.4) % Nucleat RBC Rel Count (0.00-0.1) % Eos # (Auto) (0-0.5) x10^3/uL Immature Gran # (Auto) (0.00-0.03) x10^3u/L Absolute Lymphs (auto) (1.0-4.6) x10^3/uL Absolute Monos (auto) (0.0-1.3) x10^3/uL Absolute Nucleated RBC (0.00-0.01) x10^3u/L Lymphocytes % (24.0-44.0) % Monocytes % (0.0-12.0) % Eosinophils % (0.00-5.0) % Basophils % (0.0-0.4) % Absolute Granulocytes (1.4-6.9) x10^3/uL Basophils # (0-0.4) x10^3/uL D-Dimer 0.90 H* (0.0-0.50) mg/L Sodium (137-145) mmol/L Potassium (3.5-5.1) mmol/L Chloride (98-107) mmol/L Carbon Dioxide (22-30) mmol/L Anion Gap (5-15) MEQ/L BUN (7-17) mg/dL Creatinine (0.52-1.04) mg/dL Estimated GFR ML/MIN Glucose (74-106) mg/dL Calcium (8.4-10.2) mg/dL Total Bilirubin (0.2-1.3) mg/dL AST (14-36) U/L ALT (0-35) U/L Alkaline Phosphatase (38-126) U/L Troponin I < 0.012 (0.000-0.034) ng/mL NT-Pro-B Natriuret Pep (<300) pg/mL Serum Total Protein (6.3-8.2) g/dL Albumin (3.5-5.0) g/dL Influenza Type A Ag NEGATIVE (NEGATIVE) Influenza Type B Ag NEGATIVE (NEGATIVE) RSV (PCR) NEGATIVE (NEGATIVE) SARS-CoV-2 (PCR) NEGATIVE (NEGATIVE) 07/15/23 07/15/23 Range/Units 13:35 13:35 WBC 8.0 (4.0-10.5) x10^3/uL RBC 5.16 (4.1-5.4) x10^6/uL Hgb 14.3 (12.0-16.0) g/dL Hct 44.3 (35-47) % MCV 85.9 (78-100) fL MCH 27.7 (26-32) pg MCHC 32.3 (32-36) g/dL RDW 14.2 H (11.5-14.0) % Plt Count 290 (150-450) x10^3/uL MPV 10.2 (7.5-11.0) fL Gran % 72.4 H (36.0-66.0) % Immature Gran % (Auto) 0.4 (0.00-0.4) % Nucleat RBC Rel Count 0.0 (0.00-0.1) % Eos # (Auto) 0.16 (0-0.5) x10^3/uL Immature Gran # (Auto) 0.03 (0.00-0.03) x10^3u/L Absolute Lymphs (auto) 1.31 (1.0-4.6) x10^3/uL Absolute Monos (auto) 0.68 (0.0-1.3) x10^3/uL Absolute Nucleated RBC 0.00 (0.00-0.01) x10^3u/L Lymphocytes % 16.3 L (24.0-44.0) % Monocytes % 8.5 (0.0-12.0) % Eosinophils % 2.0 (0.00-5.0) % Basophils % 0.4 (0.0-0.4) % Absolute Granulocytes 5.82 (1.4-6.9) x10^3/uL Basophils # 0.03 (0-0.4) x10^3/uL D-Dimer (0.0-0.50) mg/L Sodium 138 (137-145) mmol/L Potassium 3.7 (3.5-5.1) mmol/L Chloride 104 (98-107) mmol/L Carbon Dioxide 23 (22-30) mmol/L Anion Gap 14.1 (5-15) MEQ/L BUN 8 (7-17) mg/dL Creatinine 0.87 (0.52-1.04) mg/dL Estimated GFR 74.8 ML/MIN Glucose 110 H (74-106) mg/dL Calcium 9.3 (8.4-10.2) mg/dL Total Bilirubin 0.30 (0.2-1.3) mg/dL AST 37 H (14-36) U/L ALT 26 (0-35) U/L Alkaline Phosphatase 140 H (38-126) U/L Troponin I (0.000-0.034) ng/mL NT-Pro-B Natriuret Pep 23.1 (<300) pg/mL Serum Total Protein 7.8 (6.3-8.2) g/dL Albumin 4.3 (3.5-5.0) g/dL Influenza Type A Ag (NEGATIVE) Influenza Type B Ag (NEGATIVE) RSV (PCR) (NEGATIVE) SARS-CoV-2 (PCR) (NEGATIVE) - Progress Progress: improved Air Movement: good Progress Note: Patient is a 63-year-old female presents to our emergency department for evalua tion of shortness of breath. Physical exam revealed diminished breath sounds coarse breath sounds and wheezing. D-dimer positive. CTA chest negative for PE. However a left lower lobe interstitial opacity was observed. This is likely a forming pneumonia. EKG reveals sinus rhythm. CBC CMP nonremarkable. COVID-negative. Troponin negative. Treatments include DuoNeb, doxycycline antibiotic and Solu-Medrol. Case discussed with hospitalist at 3:30 PM who accepts admission to observation. Plan of care discussed with patient. She agrees to admission to [facility] for further evaluation and treatment. Portions of this note were created with voice recognition technology. There may be grammatical, spelling, punctuation or sound alike errors Complexity of problem addressed is moderate acute complicated No critical care time Complex of data reviewed and analyzed extensive. Test ordered test reviewed. Results analyzed and correlated clinically with history and physical examination. Management discussed with hospitalist who accepts admission to observation. Risk of complication and a risk morbidity/mortality of patient management is high. Patient will require hospitalization for further evaluation and treatment. Vital stable. Time spent to admit patient is approximately 20 minutes. Plan of care established for shared decision making. No social determinants of health present impede follow-up. Portions of this note were created with voice recognition technology. There may be grammatical, spelling, punctuation or sound alike errors 07/15/23 16:02 Blood Culture(s) Obtained: Yes Antibiotics given: Yes Discussed with DrDavid: Radha Will see patient in: hospital (observation) Counseled pt/family regarding: lab results, diagnosis, rad results - Departure Departure Disposition: Observation Clinical Impression: COPD exacerbation, Shortness of breath, Atherosclerotic disease, Hiatal hernia, Left lower lobe opacity, Fatty liver, Splenomegaly Condition: Stable Critical Care Time: No Referrals: GERALDINE EGAN DO [NON-STAFF PHY W/O PRIVILEGES] - Follow up/PCP as directed Instructions: Chronic Obstructive Pulmonary Disease
[2023-07-15 14:14] LABS: ALBUMIN 4.3 g/dL (3.5-5.0); ANION GAP 14.1 MEQ/L (5-15); BILIRUBIN,TOTAL 0.3 mg/dL (0.2-1.3); Calcium 9.3 mg/dL (8.4-10.2); Creatinine 1 0.87 mg/dL (0.52-1.04); EST GLOMERULAR FILTRATION RATE 74.8 ML/MIN; NT PRO BNPII 23.1 pg/mL (<300); Potassium 3.7 mmol/L (3.5-5.1); Total Protein 7.8 g/dL (6.3-8.2)
[2023-07-15 14:26] LABS: INFLUENZA A NEGATIVE (NEGATIVE); INFLUENZA B NEGATIVE (NEGATIVE); RESPIRATORY SYNCTIAL VIRUS NEGATIVE (NEGATIVE); SARS-CoV-2 Xpert Express NEGATIVE (NEGATIVE)
--- NOTE | 2023-07-15 15:14 | XRAY ---
Indication: Short of breath. Elevated d-dimer. Multiple contiguous axial images obtained through the chest using 80 cc Isovue 370 contrast and PE protocol. Impression: None Good opacification of the pulmonary arteries including lobar and segmental branches. No pulmonary embolus. Heart not enlarged. Aorta minimally arteriosclerotic without aneurysm/dissection. No pathologic mediastinal/hilar lymphadenopathy. Small hiatal hernia. Lungs demonstrates minimal left lower lobe interstitial opacities without consolidation or large effusion. Elsewhere bilateral mid to lower lung subsegmental atelectasis/scarring. Bony thorax intact with osteopenia and mild degenerative changes throughout the spine. Limited upper abdomen demonstrates fatty liver, 15 cm splenomegaly, and cholecystectomy. Impression: 1. Negative pulmonary embolus. 2. Minimal left lower lobe interstitial opacities. Rule out inflammatory/infectious process clinically. 3. Chronic findings including arteriosclerotic disease, hiatal hernia, fatty liver, splenomegaly, and chronic bony findings.
[2023-07-15] MEDS ORDERED: solu-MEDROL 125 MG, Sterile H2O 10 ml 2 ML IV ONE ×2 (15:21)
[2023-07-15] MEDS ORDERED: DUONEB 0.5-3 MG/3 ml Neb IH ONE ×3 (15:22→19:02)
[2023-07-15] MEDS ORDERED: Sterile H2O 10 ml IJ ONE (15:25)
[2023-07-15] MEDS ORDERED: solu-MEDROL ONE (15:25)
[2023-07-15 16:13] LABS: ADD URINE CULTURE? NO (NO); Appearance Clear (Clear); Bacteria Rare /HPF (None Seen); Bilirubin Negative (Negative); Blood Negative (Negative); Epithelial Cells None Seen /HPF (None Seen); Glucose, Urine Negative (Negative); Hyaline Casts NONE SEEN /LPF (0-2); Ketones Negative (Negative); Leukocyte Esterase Negative (Negative); Nitrite Negative (Negative); Protein,Urine Dip Negative (Negative); RBC 0-2 /HPF (0-5); Specific Gravity >=1.030 (1.005-1.030)
--- NOTE | 2023-07-15 16:52 | PCM.HP ---
History of Present Illness - Chief Complaint Chief Complaint: COPD exacerbation Date: 07/15/23 History of Present Illness: is a 63 year old female with PMHX of peripheral neuropathy, COPD, TIA, arrythmia, HTN, asthma, Bronchitis, COPd, Type II DM< arthritis, Fibromyalgia, GERD, depression, and a-fib. She presented to our ED for evaluation of a URI that has progressed into shortness of breath. THis has been ongoing for 3 days, sxs worsened with activity and deep breath. No chest pain no nausea vomiting or diaphoresis. Symptoms have been progressive. Symptoms are moderate in intensity. Symptoms improved with rest. [id number] slightly evelated and CT was negative for PE but + for LLL infiltrate. Antibiotics, steroids, and breathing tx gave in ER. She is c/o of a H/A. She denies any further concerns at this time. - Review of Systems Constitutional: No Fever, No Chills Eyes: No Symptoms Ears, Nose, & Throat: No Symptoms Respiratory: Short Of Breath, No Cough Cardiac: No Chest Pain, No Edema, No Syncope Abdominal/Gastrointestinal: No Abdominal Pain, No Nausea, No Vomiting, No Diarr hea Genitourinary Symptoms: No Dysuria Musculoskeletal: No Back Pain, No Neck Pain Skin: No Rash Neurological: Headache, No Dizziness, No Focal Weakness, No Sensory Changes Psychological: No Symptoms Endocrine: No Symptoms Hematologic/Lymphatic: No Symptoms Immunological/Allergic: No Symptoms Medications & Allergies Home Medications: Home Medication List Fluticasone/Salmeterol 500/50* [Advair 500-50 Diskus] 1 each IH DAILY 05/26/22 [History Confirmed 07/15/23] Montelukast Sodium 10 mg [Singulair 10 MG] 10 mg PO DAILY 05/26/22 [History Confirmed 07/15/23] Omeprazole 20 mg PO BID 05/26/22 [History Confirmed 07/15/23] Pramipexole Di-HCl [Pramipexole Dihydrochloride] 0.25 mg PO TID 05/26/22 [History Confirmed 07/15/23] Pregabalin 100 mg PO TID 05/26/22 [History Confirmed 07/15/23] Albuterol 8 gm Mdi Hfa [Ventolin Hfa MDI] 2 puffs IH UD 08/23/22 [History Confirmed 07/15/23] Escitalopram Oxalate [Lexapro] 20 mg PO DAILY 08/23/22 [History Confirmed 07/15/23] Liraglutide [Victoza 2-Karthik] 0.6 mg SQ DAILY 08/23/22 [History Confirmed 07/15/23] Metoprolol Succinate 50 mg [Toprol Xl 50 MG] 50 mg PO HS 08/23/22 [History Confirmed 07/15/23] dilTIAZem HCL [Diltiazem 24Hr ER (Xr)] 180 mg PO DAILY 08/23/22 [History Confirmed 07/15/23] Semaglutide [Ozempic] 0.25 mg SQ WEEKLY 07/15/23 [History Confirmed 07/15/23] Allergies/Adverse Reactions: Allergies Allergy/AdvReac Type Severity Reaction Status Date / Time Penicillins Allergy Verified 07/15/23 13:17 - Past Medical History Past Medical History: Yes Neurological History: Peripheral Neuropathy, TIA ENT History: No Pertinent History Cardiac History: Arrhythmia, Hypertension Respiratory History: Asthma, Bronchitis, COPD Endocrine Medical History: Diabetes Type II Musculoskelatal History: Arthritis, Fibromyalgia GI Medical History: GERD, Other History: No Pertinent History Pyscho-Social History: Depression Reproductive Disorders: No Pertinent History Comment: Patient reports breaking multiple toes L foot. L knee injury with conservative tx including therapy. A-fib. Previous loop recorder which was removed. Back sx x2 (2021 was last procedure) sacral/lumbar fusion. - Past Surgical History Past Surgical History: Yes Neuro Surgical History: No Pertinent History Cardiac History: Other Respiratory Surgery: No Pertinent History GI Surgical History: Hernia Repair Genitourinary Surgical Hx: No Pertinent History Musculskeletal Surgical Hx: Orthopedic Surgery Female Surgical History: Tubal Ligation Other Surgical History: Back and Hip. implanted cardiac monitoring device,implanted and removed. abcess removed in throat - Social History Smoking Status: Former smoker Exposure to second hand smoke: No Alcohol: None Drug Use: none - Physical Exam Vital Signs: Vital Signs - 24 hr Temp Pulse Resp BP BP Pulse Ox 07/15/23 16:06 97 07/15/23 15:46 80 18 96 07/15/23 15:30 77 26 H 138/88 96 07/15/23 15:20 82 20 97 07/15/23 15:10 75 20 96 07/15/23 15:05 85 15 95 07/15/23 14:30 122/69 07/15/23 14:00 87 20 132/92 95 07/15/23 13:42 97 07/15/23 13:31 89 24 136/69 97 07/15/23 13:18 98.8 F 95 H 24 190/91 97 General Appearance: no apparent distress, alert Neurologic Exam: alert, oriented x 3, cooperative, normal mood/affect, nml cerebellar function, nml station & gait, sensation nml, No motor deficits Eye Exam: PERRL/EOMI, eyes nml inspection Ears, Nose, Throat Exam: normal ENT inspection, TMs normal, pharynx normal, arpita st mucous membranes Neck Exam: normal inspection, non-tender, supple, full range of motion Respiratory Exam: diminished breath sounds (LLL), No respiratory distress Cardiovascular Exam: regular rate/rhythm, normal heart sounds, normal peripheral pulses Gastrointestinal/Abdomen Exam: soft, normal bowel sounds, No tenderness, No mass Back Exam: normal inspection, normal range of motion, No CVA tenderness, No vertebral tenderness Extremity Exam: normal inspection, normal range of motion, pelvis stable Skin Exam: normal color, warm, dry, No rash Lymphatic Exam: No adenopathy Results - Labs Lab/Micro Results: Lab Results-Last 24 Hours 07/15/23 07/15/23 07/15/23 Range/Units 13:35 13:35 13:35 WBC 8.0 (4.0-10.5) x10^3/uL RBC 5.16 (4.1-5.4) x10^6/uL Hgb 14.3 (12.0-16.0) g/dL Hct 44.3 (35-47) % MCV 85.9 (78-100) fL MCH 27.7 (26-32) pg MCHC 32.3 (32-36) g/dL RDW 14.2 H (11.5-14.0) % Plt Count 290 (150-450) x10^3/uL MPV 10.2 (7.5-11.0) fL Gran % 72.4 H (36.0-66.0) % Immature Gran % (Auto) 0.4 (0.00-0.4) % Nucleat RBC Rel Count 0.0 (0.00-0.1) % Eos # (Auto) 0.16 (0-0.5) x10^3/uL Immature Gran # (Auto) 0.03 (0.00-0.03) x10^3u/L Absolute Lymphs (auto) 1.31 (1.0-4.6) x10^3/uL Absolute Monos (auto) 0.68 (0.0-1.3) x10^3/uL Absolute Nucleated RBC 0.00 (0.00-0.01) x10^3u/L Lymphocytes % 16.3 L (24.0-44.0) % Monocytes % 8.5 (0.0-12.0) % Eosinophils % 2.0 (0.00-5.0) % Basophils % 0.4 (0.0-0.4) % Absolute Granulocytes 5.82 (1.4-6.9) x10^3/uL Basophils # 0.03 (0-0.4) x10^3/uL D-Dimer 0.90 H* (0.0-0.50) mg/L Sodium 138 (137-145) mmol/L Potassium 3.7 (3.5-5.1) mmol/L Chloride 104 (98-107) mmol/L Carbon Dioxide 23 (22-30) mmol/L Anion Gap 14.1 (5-15) MEQ/L BUN 8 (7-17) mg/dL Creatinine 0.87 (0.52-1.04) mg/dL Estimated GFR 74.8 ML/MIN Glucose 110 H (74-106) mg/dL POC Glucometer (74 to 106) mg/dL Calcium 9.3 (8.4-10.2) mg/dL Total Bilirubin 0.30 (0.2-1.3) mg/dL AST 37 H (14-36) U/L ALT 26 (0-35) U/L Alkaline Phosphatase 140 H (38-126) U/L Troponin I (0.000-0.034) ng/mL NT-Pro-B Natriuret Pep 23.1 (<300) pg/mL Serum Total Protein 7.8 (6.3-8.2) g/dL Albumin 4.3 (3.5-5.0) g/dL Urine Color (Yellow) Urine Appearance (Clear) Urine pH (4.6-8.0) Ur Specific Ellinger (1.005-1.030) Urine Protein (Negative) Urine Glucose (UA) (Negative) mg/dL Urine Ketones (Negative) Urine Blood (Negative) Urine Nitrite (Negative) Urine Bilirubin (Negative) Urine Urobilinogen (0.2) mg/dL Ur Leukocyte Esterase (Negative) U Hyaline Cast (Auto) (0-2) /LPF Urine Microscopic RBC (0-5) /HPF Urine Microscopic WBC (0-5) /HPF Ur Epithelial Cells (None Seen) /HPF Urine Bacteria (None Seen) /HPF Urine Culture Reflexed (NO) Influenza Type A Ag (NEGATIVE) Influenza Type B Ag (NEGATIVE) RSV (PCR) (NEGATIVE) SARS-CoV-2 (PCR) (NEGATIVE) 07/15/23 07/15/23 07/15/23 Range/Units 13:35 13:41 15:27 WBC (4.0-10.5) x10^3/uL RBC (4.1-5.4) x10^6/uL Hgb (12.0-16.0) g/dL Hct (35-47) % MCV (78-100) fL MCH (26-32) pg MCHC (32-36) g/dL RDW (11.5-14.0) % Plt Count (150-450) x10^3/uL MPV (7.5-11.0) fL Gran % (36.0-66.0) % Immature Gran % (Auto) (0.00-0.4) % Nucleat RBC Rel Count (0.00-0.1) % Eos # (Auto) (0-0.5) x10^3/uL Immature Gran # (Auto) (0.00-0.03) x10^3u/L Absolute Lymphs (auto) (1.0-4.6) x10^3/uL Absolute Monos (auto) (0.0-1.3) x10^3/uL Absolute Nucleated RBC (0.00-0.01) x10^3u/L Lymphocytes % (24.0-44.0) % Monocytes % (0.0-12.0) % Eosinophils % (0.00-5.0) % Basophils % (0.0-0.4) % Absolute Granulocytes (1.4-6.9) x10^3/uL Basophils # (0-0.4) x10^3/uL D-Dimer (0.0-0.50) mg/L Sodium (137-145) mmol/L Potassium (3.5-5.1) mmol/L Chloride (98-107) mmol/L Carbon Dioxide (22-30) mmol/L Anion Gap (5-15) MEQ/L BUN (7-17) mg/dL Creatinine (0.52-1.04) mg/dL Estimated GFR ML/MIN Glucose (74-106) mg/dL POC Glucometer (74 to 106) mg/dL Calcium (8.4-10.2) mg/dL Total Bilirubin (0.2-1.3) mg/dL AST (14-36) U/L ALT (0-35) U/L Alkaline Phosphatase (38-126) U/L Troponin I < 0.012 (0.000-0.034) ng/mL NT-Pro-B Natriuret Pep (<300) pg/mL Serum Total Protein (6.3-8.2) g/dL Albumin (3.5-5.0) g/dL Urine Color Yellow (Yellow) Urine Appearance Clear (Clear) Urine pH 5.0 (4.6-8.0) Ur Specific Ellinger >=1.030 A (1.005-1.030) Urine Protein Negative (Negative) Urine Glucose (UA) Negative (Negative) mg/dL Urine Ketones Negative (Negative) Urine Blood Negative (Negative) Urine Nitrite Negative (Negative) Urine Bilirubin Negative (Negative) Urine Urobilinogen 1.0 A (0.2) mg/dL Ur Leukocyte Esterase Negative (Negative) U Hyaline Cast (Auto) NONE SEEN (0-2) /LPF Urine Microscopic RBC 0-2 (0-5) /HPF Urine Microscopic WBC 6-10 A (0-5) /HPF Ur Epithelial Cells None Seen (None Seen) /HPF Urine Bacteria Rare A (None Seen) /HPF Urine Culture Reflexed NO (NO) Influenza Type A Ag NEGATIVE (NEGATIVE) Influenza Type B Ag NEGATIVE (NEGATIVE) RSV (PCR) NEGATIVE (NEGATIVE) SARS-CoV-2 (PCR) NEGATIVE (NEGATIVE) 07/15/23 Range/Units 16:35 WBC (4.0-10.5) x10^3/uL RBC (4.1-5.4) x10^6/uL Hgb (12.0-16.0) g/dL Hct (35-47) % MCV (78-100) fL MCH (26-32) pg MCHC (32-36) g/dL RDW (11.5-14.0) % Plt Count (150-450) x10^3/uL MPV (7.5-11.0) fL Gran % (36.0-66.0) % Immature Gran % (Auto) (0.00-0.4) % Nucleat RBC Rel Count (0.00-0.1) % Eos # (Auto) (0-0.5) x10^3/uL Immature Gran # (Auto) (0.00-0.03) x10^3u/L Absolute Lymphs (auto) (1.0-4.6) x10^3/uL Absolute Monos (auto) (0.0-1.3) x10^3/uL Absolute Nucleated RBC (0.00-0.01) x10^3u/L Lymphocytes % (24.0-44.0) % Monocytes % (0.0-12.0) % Eosinophils % (0.00-5.0) % Basophils % (0.0-0.4) % Absolute Granulocytes (1.4-6.9) x10^3/uL Basophils # (0-0.4) x10^3/uL D-Dimer (0.0-0.50) mg/L Sodium (137-145) mmol/L Potassium (3.5-5.1) mmol/L Chloride (98-107) mmol/L Carbon Dioxide (22-30) mmol/L Anion Gap (5-15) MEQ/L BUN (7-17) mg/dL Creatinine (0.52-1.04) mg/dL Estimated GFR ML/MIN Glucose (74-106) mg/dL POC Glucometer 115 H (74 to 106) mg/dL Calcium (8.4-10.2) mg/dL Total Bilirubin (0.2-1.3) mg/dL AST (14-36) U/L ALT (0-35) U/L Alkaline Phosphatase (38-126) U/L Troponin I (0.000-0.034) ng/mL NT-Pro-B Natriuret Pep (<300) pg/mL Serum Total Protein (6.3-8.2) g/dL Albumin (3.5-5.0) g/dL Urine Color (Yellow) Urine Appearance (Clear) Urine pH (4.6-8.0) Ur Specific Ellinger (1.005-1.030) Urine Protein (Negative) Urine Glucose (UA) (Negative) mg/dL Urine Ketones (Negative) Urine Blood (Negative) Urine Nitrite (Negative) Urine Bilirubin (Negative) Urine Urobilinogen (0.2) mg/dL Ur Leukocyte Esterase (Negative) U Hyaline Cast (Auto) (0-2) /LPF Urine Microscopic RBC (0-5) /HPF Urine Microscopic WBC (0-5) /HPF Ur Epithelial Cells (None Seen) /HPF Urine Bacteria (None Seen) /HPF Urine Culture Reflexed (NO) Influenza Type A Ag (NEGATIVE) Influenza Type B Ag (NEGATIVE) RSV (PCR) (NEGATIVE) SARS-CoV-2 (PCR) (NEGATIVE) - Radiology Impressions Radiology Exams & Impressions: Radiology Procedures Category Date Time Status CHEST WITH CONTRAST [CT] Stat Exams 07/15/23 14:15 Completed Assessment/Plan (1) Pneumonia Current Visit: Yes Status: Acute Assessment & Plan: - as seen on CT - D-Dimer 0.90- most likely r/t pneumonia - CT with IV contrast 07/15/23 Impression: 1. Negative pulmonary embolus. 2. Minimal left lower lobe interstitial opacities. Rule out inflammatory/infectious process clinically. 3. Chronic findings including arteriosclerotic disease, hiatal hernia, fatty liver, splenomegaly, and chronic bony findings. - Levaquin 750mg daily IV - oral prednisone - duonebs - RA 97% - Flu/COVID/RSV negative - BC x2 - tele Code(s): J18.9 - PNEUMONIA, UNSPECIFIED ORGANISM (2) COPD exacerbation Current Visit: Yes Status: Acute Assessment & Plan: - antibiotocs, steriods, duonebs - RA- 97% Code(s): J44.1 - CHRONIC OBSTRUCTIVE PULMONARY DISEASE W (ACUTE) EXACERBATION (3) Type II diabetes mellitus Current Visit: Yes Status: Acute Assessment & Plan: - ADA diet - S/S insulin with accuchecks ac/hs (4) Obesity (BMI 30-39.9) Current Visit: Yes Status: Acute Assessment & Plan: - advised ADA diet plan and exercise. VTE: lovenox PPI: omeprazole Next of kin:Juan Gomes [phone] Code status: D/c plan: 1-2 days Code(s): E66.9 - OBESITY, UNSPECIFIED
[2023-07-15] MEDS ORDERED: TYLENOL 325 MG PO PRN (17:04)
[2023-07-15] MEDS ORDERED: HUMALOG SQ PRN (17:20)
[2023-07-15] MEDS ORDERED: Ventolin Hfa MDI IH SCH (17:30)
[2023-07-15] MEDS ORDERED: LEVOFLOXACIN 750MG/150ML D5W 750 MG/150 ML BAG IV SCH (18:00)
[2023-07-15] MEDS ORDERED: DUONEB 0.5-3 MG/3 ml Neb IH SCH (19:00)
[2023-07-15] MEDS: Advair Hfa 230/21 Mcg COMMON CANISTER IH SCH (19:17)
[2023-07-15] MEDS: DUONEB 0.5-3 MG/3 ml Neb IH SCH (19:17)
[2023-07-15] MEDS: DELTASONE 20 MG PO SCH (21:09)
[2023-07-15] MEDS: LYRICA 100MG PO SCH (21:09)
[2023-07-15] MEDS ORDERED: VIBRAMYCIN 100 MG*** 100 MG in Dextrose 5%/Water IV Soln. 100ML PLUS BAG 100 ML IV SCH (22:00)
[2023-07-15] MEDS ORDERED: Toprol Xl 50 MG PO SCH (22:00)
[2023-07-15] MEDS ORDERED: Mirapex 0.5 MG Tablet PO SCH (22:00)
[2023-07-15] MEDS ORDERED: NON-FORMULARY ITEM (Omeprazole [Omeprazole] 20 MG Capsule.Dr) PO SCH (22:00)
[2023-07-15] MEDS ORDERED: NON-FORMULARY ITEM (Pramipexole Di-Hcl [Pramipexole Dihydrochloride] 0.25 MG Tablet) PO SCH (22:00)
[2023-07-16 04:54] LABS: Hematocrit 44.9 % (35-47); Hemoglobin 14.4 g/dL (12.0-16.0); Mean Cell Volume 86.8 fL (78-100); Mean Corpuscular Hemoglobin 27.9 pg (26-32); Mean Corpuscular Hgb Concent. 32.1 g/dL (32-36); Mean Platelet Volume 10.1 fL (7.5-11.0); Platelet Count 335 x10^3/uL (150-450); Red Blood Count 5.17 x10^6/uL (4.1-5.4); Red Cell Distribution Width 14.3 % (11.5-14.0); White Blood Count 8.5 x10^3/uL (4.0-10.5)
[2023-07-16 06:08] LABS: ALBUMIN 4.4 g/dL (3.5-5.0); ANION GAP 14.4 MEQ/L (5-15); BILIRUBIN,TOTAL 0.3 mg/dL (0.2-1.3); Calcium 9.8 mg/dL (8.4-10.2); Creatinine 1 0.85 mg/dL (0.52-1.04); EST GLOMERULAR FILTRATION RATE 76.9 ML/MIN; Potassium 4.3 mmol/L (3.5-5.1); Total Protein 8.1 g/dL (6.3-8.2)
[2023-07-16] MEDS ORDERED: DUONEB 0.5-3 MG/3 ml Neb IH ONE (06:49)
[2023-07-16] MEDS ORDERED: VENTOLIN COMMON CANISTER IH PRN (06:53)
[2023-07-16] MEDS: DUONEB 0.5-3 MG/3 ml Neb IH SCH (07:00)
[2023-07-16] MEDS: Advair Hfa 230/21 Mcg COMMON CANISTER IH SCH (07:06)
[2023-07-16 07:09] VITALS: RESP 16
[2023-07-16] MEDS: DELTASONE 20 MG PO SCH (08:33)
[2023-07-16] MEDS: LYRICA 100MG PO SCH (08:33)
--- NOTE | 2023-07-16 08:51 | PCM.DS ---
Discharge Summary Date of Admission: 07/15/23 16:30 Date of Discharge: 07/16/23 Admitting Physician: WAYNE MORAN MD Primary Care Provider: CIRO COLUNGA Allergies Allergies Penicillins Allergy (Verified 07/15/23 13:17) Hospital Summary - Hospital Course Hospital Course: 07/15/23 is a 63 year old female with PMHX of peripheral neuropathy, COPD, TIA, arrhythmia, HTN, asthma, Bronchitis, COPD, Type II DM, arthritis, Fibromyalgia, GERD, depression, and a-fib. She presented to our ED for evaluation of a URI that has progressed into shortness of breath. This has been ongoing for 3 days, sxs worsened with activity and deep breath. No chest pain no nausea vomiting or diaphoresis. Symptoms have been progressive. Symptoms are moderate in i ntensity. Symptoms improved with rest. D-dimer slightly elevated and CT was negative for PE but + for LLL infiltrate. Antibiotics, steroids, and breathing tx gave in ER. She is c/o of a H/A. She denies any further concerns at this time. 07/16/23 Pt resting in bed. She feels better today. She is wanting to go home with antibiotics. Will also d/c with steroids. She reports she has a nebulizer mach ine and would like albuterol nebs as she is out. She continues to have some wheezing but improved SOB since yesterday. Will make an Op appointment to f/u with Dr. Toño Aguirre. She denies CP, SOB, abd. pain, n/v/d. - Vitals & Intake/Output Vital Signs: Vital Signs Temperature 96.8 F 07/16/23 07:18 Pulse Rate 84 07/16/23 07:18 Respiratory Rate 16 07/16/23 07:18 Blood Pressure 144/71 07/16/23 07:18 O2 Sat by Pulse Oximetry 92 L 07/16/23 08:42 Intake & Output: Intake & Output 07/13/23 07/14/23 07/15/23 07/16/23 11:59 11:59 11:59 11:59 Intake Total 640 Balance 640 Weight 102.6 kg - Lab Result Diagrams: 07/16/23 04:32 07/16/23 04:32 Lab Results-Last 24 Hrs: Lab Results-Last 24 Hours 0107/15/23 07/15/23 Range/Units 13:35 13:35 13:35 WBC 8.0 (4.0-10.5) x10^3/uL RBC 5.16 (4.1-5.4) x10^6/uL Hgb 14.3 (12.0-16.0) g/dL Hct 44.3 (35-47) % MCV 85.9 (78-100) fL MCH 27.7 (26-32) pg MCHC 32.3 (32-36) g/dL RDW 14.2 H (11.5-14.0) % Plt Count 290 (150-450) x10^3/uL MPV 10.2 (7.5-11.0) fL Gran % 72.4 H (36.0-66.0) % Immature Gran % (Auto) 0.4 (0.00-0.4) % Nucleat RBC Rel Count 0.0 (0.00-0.1) % Eos # (Auto) 0.16 (0-0.5) x10^3/uL Immature Gran # (Auto) 0.03 (0.00-0.03) x10^3u/L Absolute Lymphs (auto) 1.31 (1.0-4.6) x10^3/uL Absolute Monos (auto) 0.68 (0.0-1.3) x10^3/uL Absolute Nucleated RBC 0.00 (0.00-0.01) x10^3u/L Lymphocytes % 16.3 L (24.0-44.0) % Monocytes % 8.5 (0.0-12.0) % Eosinophils % 2.0 (0.00-5.0) % Basophils % 0.4 (0.0-0.4) % Absolute Granulocytes 5.82 (1.4-6.9) x10^3/uL Basophils # 0.03 (0-0.4) x10^3/uL D-Dimer 0.90 H* (0.0-0.50) mg/L Sodium 138 (137-145) mmol/L Potassium 3.7 (3.5-5.1) mmol/L Chloride 104 (98-107) mmol/L Carbon Dioxide 23 (22-30) mmol/L Anion Gap 14.1 (5-15) MEQ/L BUN 8 (7-17) mg/dL Creatinine 0.87 (0.52-1.04) mg/dL Estimated GFR 74.8 ML/MIN Glucose 110 H (74-106) mg/dL POC Glucometer (74 to 106) mg/dL Calcium 9.3 (8.4-10.2) mg/dL Total Bilirubin 0.30 (0.2-1.3) mg/dL AST 37 H (14-36) U/L ALT 26 (0-35) U/L Alkaline Phosphatase 140 H (38-126) U/L Troponin I (0.000-0.034) ng/mL NT-Pro-B Natriuret Pep 23.1 (<300) pg/mL Serum Total Protein 7.8 (6.3-8.2) g/dL Albumin 4.3 (3.5-5.0) g/dL Urine Color (Yellow) Urine Appearance (Clear) Urine pH (4.6-8.0) Ur Specific [place] (1.005-1.030) Urine Protein (Negative) Urine Glucose (UA) (Negative) mg/dL Urine Ketones (Negative) Urine Blood (Negative) Urine Nitrite (Negative) Urine Bilirubin (Negative) Urine Urobilinogen (0.2) mg/dL Ur Leukocyte Esterase (Negative) U Hyaline Cast (Auto) (0-2) /LPF Urine Microscopic RBC (0-5) /HPF Urine Microscopic WBC (0-5) /HPF Ur Epithelial Cells (None Seen) /HPF Urine Bacteria (None Seen) /HPF Urine Culture Reflexed (NO) Influenza Type A Ag (NEGATIVE) Influenza Type B Ag (NEGATIVE) RSV (PCR) (NEGATIVE) SARS-CoV-2 (PCR) (NEGATIVE) 07/15/23 07/15/23 07/15/23 Range/Units 13:35 13:41 15:27 WBC (4.0-10.5) x10^3/uL RBC (4.1-5.4) x10^6/uL Hgb (12.0-16.0) g/dL Hct (35-47) % MCV (78-100) fL MCH (26-32) pg MCHC (32-36) g/dL RDW (11.5-14.0) % Plt Count (150-450) x10^3/uL MPV (7.5-11.0) fL Gran % (36.0-66.0) % Immature Gran % (Auto) (0.00-0.4) % Nucleat RBC Rel Count (0.00-0.1) % Eos # (Auto) (0-0.5) x10^3/uL Immature Gran # (Auto) (0.00-0.03) x10^3u/L Absolute Lymphs (auto) (1.0-4.6) x10^3/uL Absolute Monos (auto) (0.0-1.3) x10^3/uL Absolute Nucleated RBC (0.00-0.01) x10^3u/L Lymphocytes % (24.0-44.0) % Monocytes % (0.0-12.0) % Eosinophils % (0.00-5.0) % Basophils % (0.0-0.4) % Absolute Granulocytes (1.4-6.9) x10^3/uL Basophils # (0-0.4) x10^3/uL D-Dimer (0.0-0.50) mg/L Sodium (137-145) mmol/L Potassium (3.5-5.1) mmol/L Chloride (98-107) mmol/L Carbon Dioxide (22-30) mmol/L Anion Gap (5-15) MEQ/L BUN (7-17) mg/dL Creatinine (0.52-1.04) mg/dL Estimated GFR ML/MIN Glucose (74-106) mg/dL POC Glucometer (74 to 106) mg/dL Calcium (8.4-10.2) mg/dL Total Bilirubin (0.2-1.3) mg/dL AST (14-36) U/L ALT (0-35) U/L Alkaline Phosphatase (38-126) U/L Troponin I < 0.012 (0.000-0.034) ng/mL NT-Pro-B Natriuret Pep (<300) pg/mL Serum Total Protein (6.3-8.2) g/dL Albumin (3.5-5.0) g/dL Urine Color Yellow (Yellow) Urine Appearance Clear (Clear) Urine pH 5.0 (4.6-8.0) Ur Specific [place] >=1.030 A (1.005-1.030) Urine Protein Negative (Negative) Urine Glucose (UA) Negative (Negative) mg/dL Urine Ketones Negative (Negative) Urine Blood Negative (Negative) Urine Nitrite Negative (Negative) Urine Bilirubin Negative (Negative) Urine Urobilinogen 1.0 A (0.2) mg/dL Ur Leukocyte Esterase Negative (Negative) U Hyaline Cast (Auto) NONE SEEN (0-2) /LPF Urine Microscopic RBC 0-2 (0-5) /HPF Urine Microscopic WBC 6-10 A (0-5) /HPF Ur Epithelial Cells None Seen (None Seen) /HPF Urine Bacteria Rare A (None Seen) /HPF Urine Culture Reflexed NO (NO) Influenza Type A Ag NEGATIVE (NEGATIVE) Influenza Type B Ag NEGATIVE (NEGATIVE) RSV (PCR) NEGATIVE (NEGATIVE) SARS-CoV-2 (PCR) NEGATIVE (NEGATIVE) 07/15/23 07/15/23 07/15/23 Range/Units 16:35 17:15 21:45 WBC (4.0-10.5) x10^3/uL RBC (4.1-5.4) x10^6/uL Hgb (12.0-16.0) g/dL Hct (35-47) % MCV (78-100) fL MCH (26-32) pg MCHC (32-36) g/dL RDW (11.5-14.0) % Plt Count (150-450) x10^3/uL MPV (7.5-11.0) fL Gran % (36.0-66.0) % Immature Gran % (Auto) (0.00-0.4) % Nucleat RBC Rel Count (0.00-0.1) % Eos # (Auto) (0-0.5) x10^3/uL Immature Gran # (Auto) (0.00-0.03) x10^3u/L Absolute Lymphs (auto) (1.0-4.6) x10^3/uL Absolute Monos (auto) (0.0-1.3) x10^3/uL Absolute Nucleated RBC (0.00-0.01) x10^3u/L Lymphocytes % (24.0-44.0) % Monocytes % (0.0-12.0) % Eosinophils % (0.00-5.0) % Basophils % (0.0-0.4) % Absolute Granulocytes (1.4-6.9) x10^3/uL Basophils # (0-0.4) x10^3/uL D-Dimer (0.0-0.50) mg/L Sodium (137-145) mmol/L Potassium (3.5-5.1) mmol/L Chloride (98-107) mmol/L Carbon Dioxide (22-30) mmol/L Anion Gap (5-15) MEQ/L BUN (7-17) mg/dL Creatinine (0.52-1.04) mg/dL Estimated GFR ML/MIN Glucose (74-106) mg/dL POC Glucometer 115 H (74 to 106) mg/dL Calcium (8.4-10.2) mg/dL Total Bilirubin (0.2-1.3) mg/dL AST (14-36) U/L ALT (0-35) U/L Alkaline Phosphatase (38-126) U/L Troponin I < 0.012 < 0.012 (0.000-0.034) ng/mL NT-Pro-B Natriuret Pep (<300) pg/mL Serum Total Protein (6.3-8.2) g/dL Albumin (3.5-5.0) g/dL Urine Color (Yellow) Urine Appearance (Clear) Urine pH (4.6-8.0) Ur Specific [place] (1.005-1.030) Urine Protein (Negative) Urine Glucose (UA) (Negative) mg/dL Urine Ketones (Negative) Urine Blood (Negative) Urine Nitrite (Negative) Urine Bilirubin (Negative) Urine Urobilinogen (0.2) mg/dL Ur Leukocyte Esterase (Negative) U Hyaline Cast (Auto) (0-2) /LPF Urine Microscopic RBC (0-5) /HPF Urine Microscopic WBC (0-5) /HPF Ur Epithelial Cells (None Seen) /HPF Urine Bacteria (None Seen) /HPF Urine Culture Reflexed (NO) Influenza Type A Ag (NEGATIVE) Influenza Type B Ag (NEGATIVE) RSV (PCR) (NEGATIVE) SARS-CoV-2 (PCR) (NEGATIVE) 07/15/23 07/16/23 07/16/23 Range/Units 21:46 04:32 04:32 WBC 8.5 (4.0-10.5) x10^3/uL RBC 5.17 (4.1-5.4) x10^6/uL Hgb 14.4 (12.0-16.0) g/dL Hct 44.9 (35-47) % MCV 86.8 (78-100) fL MCH 27.9 (26-32) pg MCHC 32.1 (32-36) g/dL RDW 14.3 H (11.5-14.0) % Plt Count 335 (150-450) x10^3/uL MPV 10.1 (7.5-11.0) fL Gran % (36.0-66.0) % Immature Gran % (Auto) (0.00-0.4) % Nucleat RBC Rel Count (0.00-0.1) % Eos # (Auto) (0-0.5) x10^3/uL Immature Gran # (Auto) (0.00-0.03) x10^3u/L Absolute Lymphs (auto) (1.0-4.6) x10^3/uL Absolute Monos (auto) (0.0-1.3) x10^3/uL Absolute Nucleated RBC (0.00-0.01) x10^3u/L Lymphocytes % (24.0-44.0) % Monocytes % (0.0-12.0) % Eosinophils % (0.00-5.0) % Basophils % (0.0-0.4) % Absolute Granulocytes (1.4-6.9) x10^3/uL Basophils # (0-0.4) x10^3/uL D-Dimer (0.0-0.50) mg/L Sodium 139 (137-145) mmol/L Potassium 4.3 (3.5-5.1) mmol/L Chloride 103 (98-107) mmol/L Carbon Dioxide 26 (22-30) mmol/L Anion Gap 14.4 (5-15) MEQ/L BUN 12 (7-17) mg/dL Creatinine 0.85 (0.52-1.04) mg/dL Estimated GFR 76.9 ML/MIN Glucose 169 H (74-106) mg/dL POC Glucometer 184 H (74 to 106) mg/dL Calcium 9.8 (8.4-10.2) mg/dL Total Bilirubin 0.30 (0.2-1.3) mg/dL AST 32 (14-36) U/L ALT 28 (0-35) U/L Alkaline Phosphatase 126 (38-126) U/L Troponin I (0.000-0.034) ng/mL NT-Pro-B Natriuret Pep (<300) pg/mL Serum Total Protein 8.1 (6.3-8.2) g/dL Albumin 4.4 (3.5-5.0) g/dL Urine Color (Yellow) Urine Appearance (Clear) Urine pH (4.6-8.0) Ur Specific [place] (1.005-1.030) Urine Protein (Negative) Urine Glucose (UA) (Negative) mg/dL Urine Ketones (Negative) Urine Blood (Negative) Urine Nitrite (Negative) Urine Bilirubin (Negative) Urine Urobilinogen (0.2) mg/dL Ur Leukocyte Esterase (Negative) U Hyaline Cast (Auto) (0-2) /LPF Urine Microscopic RBC (0-5) /HPF Urine Microscopic WBC (0-5) /HPF Ur Epithelial Cells (None Seen) /HPF Urine Bacteria (None Seen) /HPF Urine Culture Reflexed (NO) Influenza Type A Ag (NEGATIVE) Influenza Type B Ag (NEGATIVE) RSV (PCR) (NEGATIVE) SARS-CoV-2 (PCR) (NEGATIVE) 07/16/23 Range/Units 07:07 WBC (4.0-10.5) x10^3/uL RBC (4.1-5.4) x10^6/uL Hgb (12.0-16.0) g/dL Hct (35-47) % MCV (78-100) fL MCH (26-32) pg MCHC (32-36) g/dL RDW (11.5-14.0) % Plt Count (150-450) x10^3/uL MPV (7.5-11.0) fL Gran % (36.0-66.0) % Immature Gran % (Auto) (0.00-0.4) % Nucleat RBC Rel Count (0.00-0.1) % Eos # (Auto) (0-0.5) x10^3/uL Immature Gran # (Auto) (0.00-0.03) x10^3u/L Absolute Lymphs (auto) (1.0-4.6) x10^3/uL Absolute Monos (auto) (0.0-1.3) x10^3/uL Absolute Nucleated RBC (0.00-0.01) x10^3u/L Lymphocytes % (24.0-44.0) % Monocytes % (0.0-12.0) % Eosinophils % (0.00-5.0) % Basophils % (0.0-0.4) % Absolute Granulocytes (1.4-6.9) x10^3/uL Basophils # (0-0.4) x10^3/uL D-Dimer (0.0-0.50) mg/L Sodium (137-145) mmol/L Potassium (3.5-5.1) mmol/L Chloride (98-107) mmol/L Carbon Dioxide (22-30) mmol/L Anion Gap (5-15) MEQ/L BUN (7-17) mg/dL Creatinine (0.52-1.04) mg/dL Estimated GFR ML/MIN Glucose (74-106) mg/dL POC Glucometer 150 H (74 to 106) mg/dL Calcium (8.4-10.2) mg/dL Total Bilirubin (0.2-1.3) mg/dL AST (14-36) U/L ALT (0-35) U/L Alkaline Phosphatase (38-126) U/L Troponin I (0.000-0.034) ng/mL NT-Pro-B Natriuret Pep (<300) pg/mL Serum Total Protein (6.3-8.2) g/dL Albumin (3.5-5.0) g/dL Urine Color (Yellow) Urine Appearance (Clear) Urine pH (4.6-8.0) Ur Specific [place] (1.005-1.030) Urine Protein (Negative) Urine Glucose (UA) (Negative) mg/dL Urine Ketones (Negative) Urine Blood (Negative) Urine Nitrite (Negative) Urine Bilirubin (Negative) Urine Urobilinogen (0.2) mg/dL Ur Leukocyte Esterase (Negative) U Hyaline Cast (Auto) (0-2) /LPF Urine Microscopic RBC (0-5) /HPF Urine Microscopic WBC (0-5) /HPF Ur Epithelial Cells (None Seen) /HPF Urine Bacteria (None Seen) /HPF Urine Culture Reflexed (NO) Influenza Type A Ag (NEGATIVE) Influenza Type B Ag (NEGATIVE) RSV (PCR) (NEGATIVE) SARS-CoV-2 (PCR) (NEGATIVE) Micro Results-Entire Visit: Accuchecks Date 07/16/23 - Radiology Exams Ordered Rad Exams-Entire Visit: Radiology Procedures Category Date Time Status CHEST WITH CONTRAST [CT] Stat Exams 07/15/23 14:15 Completed - Procedures and Test Procedures and Tests throughout Hospitalization: Therapy Orders & Screens 07/16/23 05:57 Oxygen Nasal Cannula 2 lpm Comment: Diagnosis: COPD exacerbation 07/16/23 07:46 RT 6 Minute Walk ROUTINE Comment: eval for need for home O2 Diagnosis: COPD exacerbation Discharge Exam General Appearance: no apparent distress, alert Neurologic Exam: alert, oriented x 3, cooperative, normal mood/affect, nml cerebellar function, sensation nml, No motor deficits Eye Exam: PERRL, EOMI, eyes nml inspection Ears, Nose, Throat Exam: normal ENT inspection, pharynx normal, moist mucous membranes Neck Exam: normal inspection, non-tender, supple, full range of motion Respiratory Exam: wheezing, No respiratory distress Cardiovascular Exam: regular rate/rhythm, normal heart sounds Gastrointestinal/Abdomen Exam: soft, No tenderness, No mass Pelvic Exam: deferred Rectal Exam: deferred Back Exam: normal inspection, normal range of motion, No CVA tenderness, No vertebral tenderness Extremity Exam: normal inspection, normal range of motion Skin Exam: normal color, warm, dry Final Diagnosis/Problem List - Final Discharge Diagnosis/Problem (1) Pneumonia Current Visit: Yes Status: Acute Code(s): J18.9 - PNEUMONIA, UNSPECIFIED ORGANISM (2) COPD exacerbation Current Visit: Yes Status: Acute Code(s): J44.1 - CHRONIC OBSTRUCTIVE PULMONARY DISEASE W (ACUTE) EXACERBATION (3) Type II diabetes mellitus Current Visit: Yes Status: Acute (4) Obesity (BMI 30-39.9) Current Visit: Yes Status: Acute Assessment & Plan: (1) Pneumonia Current Visit: Yes Status: Acute Assessment & Plan: - as seen on CT - D-Dimer 0.90- most likely r/t pneumonia - CT with IV contrast 07/15/23 Impression: 1. Negative pulmonary embolus. 2. Minimal left lower lobe interstitial opacities. Rule out inflammatory/infectious process clinically. 3. Chronic findings including arteriosclerotic disease, hiatal hernia, fatty liver, splenomegaly, and chronic bony findings. - Levaquin 750mg daily IV - oral prednisone - duonebs - RA 97% - Flu/COVID/RSV negative - BC x2 - tele 07/16/23 - RA 92% Code(s): J18.9 - PNEUMONIA, UNSPECIFIED ORGANISM (2) COPD exacerbation Current Visit: Yes Status: Acute Assessment & Plan: - antibiotocs, steriods, duonebs - RA- 92% Code(s): J44.1 - CHRONIC OBSTRUCTIVE PULMONARY DISEASE W (ACUTE) EXACERBATION (3) Type II diabetes mellitus Current Visit: Yes Status: Acute Assessment & Plan: - ADA diet - S/S insulin with accuchecks ac/hs (4) Obesity (BMI 30-39.9) Current Visit: Yes Status: Acute Assessment & Plan: - advised ADA diet plan and exercise. Code(s): E66.9 - OBESITY, UNSPECIFIED - Discharge Discharge Date: 07/16/23 Disposition: Home, Self-Care Condition: Stable Prescriptions: New Prednisone 20 mg [Deltasone 20 mg] 20 mg PO BID 5 Days #10 tablet Levofloxacin [Levofloxacin 250MG Tablet] 250 mg PO DAILY 6 Days #6 tab Levofloxacin [Levofloxacin 500 MG Tablet] 500 mg PO DAILY 6 Days #10 tablet Albuterol 2.5 mg/3 ml Neb [Proventil 2.5 mg/3 ml Neb] 2.5 mg IH QIDPRN PRN 6 Days #25 PRN Reason: Shortness Of Breath/Wheezing Continue Montelukast Sodium 10 mg [Singulair 10 MG] 10 mg PO DAILY Pregabalin 100 mg PO TID Omeprazole 20 mg PO BID Fluticasone/Salmeterol 500/50* [Advair 500-50 Diskus] 1 each IH DAILY dilTIAZem HCL [Diltiazem 24Hr ER (Xr)] 180 mg PO DAILY Albuterol 8 gm Mdi Hfa [Ventolin Hfa MDI] 2 puffs IH UD PRN PRN Reason: SOB/WHEEZING Metoprolol Succinate 50 mg [Toprol Xl 50 MG] 50 mg PO HS Escitalopram Oxalate [Lexapro] 20 mg PO DAILY Semaglutide [Ozempic] 0.25 mg SQ WEEKLY Follow up with: LAI EVERETT [CONSULTING PHYSICIAN] - 08/06/23 9:30 am ([facility]) CIRO COLUNGA [Primary Care Provider] - 07/24/23 1:15 pm
[2023-07-16] MEDS ORDERED: Protonix 40MG Tablet PO SCH (10:00)
[2023-07-16] MEDS ORDERED: Cardizem CD PO SCH (10:00)
[2023-07-16] MEDS ORDERED: ADVAIR 500-50 DISKUS IH SCH (10:00)
[2023-07-16] MEDS ORDERED: NON-FORMULARY ITEM (Escitalopram Oxalate [Lexapro] 20 MG Tablet) PO SCH (10:00)
[2023-07-16] MEDS ORDERED: Singulair 10 MG PO SCH (10:00)
[2023-07-16] MEDS ORDERED: DILTIAZEM HCL 180 MG PO SCH (10:00)
[2023-07-16] MEDS ORDERED: Lexapro PO SCH (10:00)
[2023-07-16 11:28] VITALS: BP 144/67; PULSE 95; TEMP 97.1; O2SAT 94
== END 2023-07-16 11:39 | disposition home or self-care (01) ==
LOC: ED 13:16 → MED SURG 16:30
PROVIDERS: ADMIT Internal Medicine; ATTEND Internal Medicine
DX: J18.9 Pneumonia, unspecified organism (principal); J44.1 Chronic obstructive pulmonary disease with (acute) exacerbation; E11.9 Type 2 diabetes mellitus without complications; E66.9 Obesity, unspecified; E11.42 Type 2 diabetes mellitus with diabetic polyneuropathy; Z86.73 Personal history of transient ischemic attack (TIA), and cerebral infarction without residual deficits; I10 Essential (primary) hypertension; I48.91 Unspecified atrial fibrillation; Z79.899 Other long term (current) drug therapy; Z20.828 Contact with and (suspected) exposure to other viral communicable diseases
CPT/HCPCS: 0241U; 36000; 36415; 71260; 80053; 81001; 82947; 83880; 84484; 85025; 85027; 85379; 87040; 93005; 93041; 94640; 94760; 94762; 96374; 99285; Q3014; 93268; J1817; J1956; J2930; A9270-GY; G0378

== ENCOUNTER 2023-11-14 05:41 | Day surgery (SDC) | payer MEDICARE ==
[2023-11-14] MEDS ORDERED: NEURONTIN ONE (05:56)
[2023-11-14] MEDS ORDERED: celeBREX 100 MG ONE (05:56)
[2023-11-14] MEDS ORDERED: Pepcid 20 MG VIAL IV ONE (05:56)
[2023-11-14] MEDS ORDERED: Reglan 10 MG/2 ML ONE (05:56)
[2023-11-14] MEDS ORDERED: TYLENOL EXTRA STRENGTH 500 MG ONE (05:56)
[2023-11-14] MEDS ORDERED: Decadron 4 MG ONE (05:56)
[2023-11-14] MEDS ORDERED: Lactated Ringers 1,000 ML IV ONE (05:57)
[2023-11-14] MEDS: Lactated Ringers 1,000 ML IV SCH (06:06)
[2023-11-14] MEDS: Decadron 4 MG PO ONE (06:06)
[2023-11-14] MEDS: celeBREX 100 MG PO ONE (06:06)
[2023-11-14] MEDS: Pepcid 20 MG VIAL IV SCH (06:07)
[2023-11-14] MEDS: TYLENOL EXTRA STRENGTH 500 MG PO ONE (06:07)
[2023-11-14] MEDS: Reglan 10 MG/2 ML IV SCH (06:07)
[2023-11-14] MEDS: NEURONTIN PO ONE (06:09)
[2023-11-14] MEDS ORDERED: Epinephrine Preservative Free 1 MG/ML ONE ×4 (06:30→09:56)
[2023-11-14 06:36] VITALS: TEMP 97
[2023-11-14] MEDS: CLINDAMYCIN-D5W 900 MG/50 ML*** 900 MG/50 ML BAG IV ONE (07:19)
[2023-11-14] MEDS ORDERED: Decadron 4 MG INJ ONE (08:06)
[2023-11-14] MEDS ORDERED: ROCURONIUM BROMIDE IV ONE (08:06)
[2023-11-14] MEDS ORDERED: Naropin 0.5% 30 ML VIAL ONE (08:06)
[2023-11-14] MEDS ORDERED: SUBLIMAZE 100 MCG/2 ML ONE ×3 (08:06→12:18)
[2023-11-14] MEDS ORDERED: Xylocaine-Mpf 2% 5 Ml Vial ONE (08:06)
[2023-11-14] MEDS ORDERED: DIPRIVAN 200 MG/20 ML IV ONE (08:06)
[2023-11-14] MEDS ORDERED: TORAdol 30 mg Injection ONE (08:06)
[2023-11-14] MEDS ORDERED: Zofran 4 MG/2 ML VIAL ONE ×2 (08:06→12:18)
[2023-11-14] MEDS ORDERED: BRIDION 200MG/2ML IV ONE (08:06)
[2023-11-14] MEDS ORDERED: Lactated Ringers 4,000 ML IV ONE (09:21)
[2023-11-14] MEDS ORDERED: Lactated Ringers 5,000 ML IV ONE (09:39)
[2023-11-14] MEDS ORDERED: Xopenex 1.25 MG/0.5 ML UD NEBULE IH ONE (11:20)
[2023-11-14] MEDS ORDERED: Sodium Chloride 3 ML UD NEBULES IH ONE (11:21)
[2023-11-14] MEDS: Xopenex 1.25 MG/0.5 ML UD NEBULE IH ONE (11:26)
[2023-11-14 11:33] VITALS: O2SAT 93
--- NOTE | 2023-11-14 13:23 | OP ---
SURGERY DATE/TIME: 11/14/2023 0805 PREOPERATIVE DIAGNOSIS: Partial thickness tear right rotator cuff with impingement syndrome, acromioclavicular osteoarthritis, degenerative tear glenoid labrum. POSTOPERATIVE DIAGNOSIS: Complete tear right rotator cuff with impingement syndrome, acromioclavicular osteoarthritis, near complete tear of biceps tendon, degenerative tear of the glenoid labrum and a loose body. PROCEDURE: Arthroscopy right shoulder with rotator cuff repair, subacromial decompression, Sydnee procedure, biceps tenotomy, debridement of the glenoid labrum and removal of loose body. SURGEON: Juan Francisco Maya II, D.O. ANESTHESIA: General, scalene block for postoperative pain control. DESCRIPTION OF PROCEDURE: The patient is identified and informed consent was obtained. The patient was then taken to the operative suite where the scalene block was administered and the general anesthetic was given. Once an appropriate level of anesthesia had been obtained, the patient was then placed into the left lateral decubitus position with the right side up, axillary roll was placed. Bony prominences padded. Shoulders were rotated back 1 degree and then the beanbag was then inflated. The right upper extremity was then prepped and draped in the usual sterile fashion and placed into the STaR and abduction traction device. At this point a standard time out was taken. The shoulder was then marked the bony landmarks and a standard posterior portal was created with an 11 blade. Trocar and cannula were placed into the glenohumeral joint and the joint was then distended with arthroscopic pump. An 18 gauge spinal needle identified the level for the anterior portal which was also created with an 11 blade. The glenohumeral joint was then inspected in a systematic fashion. Upon inspection of the infraglenoid pouch, there was noted to be a loose body which was grasped and removed. There was degenerative tear into the anterior labrum, superior labrum and posterior labrum. Also noted was a near complete tear of the biceps tendon. The labrum was debrided and biceps tenotomy performed. At this point, the glenohumeral ligaments were inspected and noted to be intact. The undersurface of the supraspinatus and the superior fibers of subscapularis was noted to be some tearing. The subscapularis was only mildly scuffed. The supraspinatus had greater than 50% tearing of the tendon. It is a very small tear measuring only 10 mm in width and upon probing was noted to be very wispy thin the tear was completed and the rotator cuff is prepared from the articular side. At this point, the scope is then placed into the bursal space where bursoscopy was performed and the area visualized from the bursal side as well. Again, noted to be about 10 to 12 mm in width. The undersurface of the acromion was then denuded of soft tissue with ablator and a ganga was utilized to remove about two ganga thicknesses of acromion anteriorly and taking this to a nice new transition posteriorly. The ablator was also utilized to debride the acromioclavicular joint and again utilizing the ganga about 2.5 ganga thickness of distal clavicle was resected. At this point our attention was turned back to the rotator cuff where the bony bed was prepared with shaver and ganga. The right rotator cuff edge was freshened and due to the small nature of the tear, an inverted mattress suture was placed and repaired with a 5.5 SwiveLock anchor. An excellent repair was noted. The shoulder was re-inspected and no further pathology identified. The instrumentation was removed and the portal sites were closed with interrupted 4-0 Nylon suture. Adaptic, 4x4 and a standard postoperative arthroscopy dressing applied. The patient was placed into an ultra-sling transferred to the cart and taken to the recovery room in satisfactory condition having tolerated the procedure well.
[2023-11-14 15:01] VITALS: BP 150/70; PULSE 80; RESP 17
== END 2023-11-14 13:50 | disposition home or self-care (01) ==
LOC: SDC 05:41
PROVIDERS: ATTEND Orthopaedic Surgery
DX: M75.101 Unspecified rotator cuff tear or rupture of right shoulder, not specified as traumatic (principal); M75.41 Impingement syndrome of right shoulder; M19.011 Primary osteoarthritis, right shoulder; S43.431A Superior glenoid labrum lesion of right shoulder, initial encounter; S46.211A Strain of muscle, fascia and tendon of other parts of biceps, right arm, initial encounter; E11.9 Type 2 diabetes mellitus without complications
CPT/HCPCS: 00450; 01630; 01716; 23120; 29819; 29822; 29827; 64415; 76937; 76942; 82947; 94640; C1713; J0171; J1100; J1885; J2405; J2704; J2795; J3010; A9270-GY

== ENCOUNTER 2024-05-18 13:40 | Emergency (ER) | payer MEDICARE ==
--- NOTE | 2024-05-18 13:44 | ERPHSYRPT ---
- History of Present Illness Time Seen by Provider: 05/18/24 13:43 Source: patient, family Exam Limitations: no limitations Physician History: This is a diabetic 64-year-old obese white female patient who arrives by private vehicle escorted by her and is a patient of Dr. Reich. The wind had been blowing significantly at their home and the breaker was tripped. She went to reset the breaker and was leaning on/elevated on the washer when she suddenly slipped and caught the lower ribs on the left causing significant pain. She has pain when she has a deep inspiration. Patient did not hit her head. She has no neck pain. The only pain is in her left lower ribs. Patient has a history of TIA, glaucoma, arrhythmia, asthma/COPD, arthritis, osteoporosis, anxiety/depression, gastroesophageal reflux disease. She is not on any anticoagulation therapy. Occurred: just prior to arrival Reason for Fall: slipped Injuries/Pain Location: chest (Left lower lateral chest wall) Loss of Consciousness: no loss of consciousness Quality: sharpness, stabbing Severity of Pain-Max: moderate Severity of Pain-Current: moderate Associated Symptoms (Fall): other (Lower lateral chest wall/rib pain) Allergies/Adverse Reactions: Penicillins Allergy (Verified 05/18/24 13:48) anaphylaxis Home Medications: Fluticasone/Salmeterol 500/50* [Advair 500-50 Diskus] 1 each IH DAILY 05/26/22 [History] Montelukast Sodium 10 mg [Singulair 10 MG] 10 mg PO DAILY 05/26/22 [History] Omeprazole 20 mg PO BID 05/26/22 [History] Pregabalin 100 mg PO TID 05/26/22 [History] Albuterol 8 gm Mdi Hfa [Ventolin Hfa MDI] 2 puffs IH UD PRN 08/23/22 [History] Escitalopram Oxalate [Lexapro] 20 mg PO DAILY 08/23/22 [History] Metoprolol Succinate 50 mg [Toprol Xl 50 MG] 50 mg PO HS 08/23/22 [History] dilTIAZem HCL [Diltiazem 24Hr ER (Xr)] 180 mg PO DAILY 08/23/22 [History] Semaglutide [Ozempic] 0.25 mg SQ WEEKLY 07/15/23 [History] Aspirin EC 325 mg [Ecotrin 325 MG] 325 mg PO DAILY 11/04/23 [History] Cyanocobalamin (Vitamin B-12) [Vitamin B-12] 1 tab PO DAILY 11/04/23 [History] Gabapentin [Neurontin ] 300 mg PO BID 11/04/23 [History] Pramipexole Di-HCl [Pramipexole Dihydrochloride] 0.25 mg PO TID 11/04/23 [History] Hx Tetanus, Diphtheria Vaccination/Date Given: Yes Hx Influenza Vaccination/Date Given: Yes Hx Pneumococcal Vaccination/Date Given: Yes Travel Risk - International Travel Have you traveled outside of the country in past 3 weeks: No - Emerging Infectious Disease Are you exhibiting symptoms associated with any current EIDs: No - Review of Systems Constitutional: No Symptoms Eyes: No Symptoms Ears, Nose, & Throat: No Symptoms Respiratory: No Symptoms Cardiac: No Symptoms Abdominal/Gastrointestinal: No Symptoms Genitourinary Symptoms: No Symptoms Musculoskeletal: Fall, Other (Left ant lateral lower rib pain) Skin: No Symptoms Neurological: No Symptoms Psychological: No Symptoms Endocrine: No Symptoms Hematologic/Lymphatic: No Symptoms Immunological/Allergic: No Symptoms All Other Systems: Reviewed and Negative - Past Medical History Pertinent Past Medical History: Yes Neurological History: TIA ENT History: Glaucoma Cardiac History: Arrhythmia Respiratory History: Asthma, COPD Endocrine Medical History: Diabetes Type II Musculoskeletal History: Arthritis, Osteoporosis GI Medical History: GERD, Other History: No Pertinent History Psycho-Social History: Anxiety, Depression Female Reproductive Disorders: No Pertinent History Other Medical History: PSH: R SHOULDER RTC REPAIR, TUBAL LIGATION, 2 BACK SURGERIES, 2 THROAT SURGERIES, L FOOT SURGERY, GALL BLADDER - Past Surgical History Past Surgical History: Yes Neuro Surgical History: No Pertinent History Cardiac: Other Respiratory: No Pertinent History Gastrointestinal: Hernia Repair Genitourinary: No Pertinent History Musculoskeletal: Orthopedic Surgery Female Surgical History: Tubal Ligation Other Surgical History: Back and Hip. implanted cardiac monitoring device,implanted and removed. abcess removed in throat - Social History Smoking Status: Former smoker Exposure to second hand smoke: No Drug Use: none Patient Lives Alone: No - Social Determinants of Health Will the patient participate in the screening: Yes Do you worry about a steady place to live?: No In the past 12 months,have you had to go without utilities?: No Transportation Issues: No Has anyone in your support network made you feel unsafe?: No Have you or anyone in your house had to go without enough: No - Nursing Vital Signs Nursing Vital Signs: Initial Vital Signs Temperature 98.0 F 05/18/24 13:48 Pulse Rate 87 05/18/24 13:48 Respiratory Rate 20 05/18/24 13:48 Blood Pressure 176/77 05/18/24 13:48 O2 Sat by Pulse Oximetry 97 05/18/24 13:48 Pain Scale Pain Intensity 10 - John Coma Score Best Eye Response ([place]): (4) open spontaneously Best Verbal Response ([place]): (5) oriented Best Motor Response ([place]): (6) obeys commands [place] Total: 15 - Physical Exam General Appearance: no apparent distress, alert, anxiety, obese Head Injury: no evidence of injury Eye Exam: PERRL/EOMI ENT Exam: airway nml, nml ext.inspection, No evidence of ENT injury Neck Exam: supple, trachea midline, full range of motion, normal alignment Respiratory/Chest Exam: normal breath sounds, rib tenderness (Left anterior lateral lower ribs), No respiratory distress, No ecchymosis, No crepitus Cardiovascular Exam: normal heart sounds, regular rate/rhythm Gastrointestinal Exam: No tenderness Rectal Exam: not done Back Exam: normal inspection, normal range of motion, No CVA tenderness, No vertebral tenderness Extremity Exam: normal inspection, normal range of motion Neurologic Exam: alert, oriented x 3, cooperative, 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 nml as tested, nml cerebellar function, nml station & gait, sensation nml Skin Exam: normal color, warm, dry SpO2 Interpretation: normal O2 Delivery: Room Air - Course Nursing assessment & vital signs reviewed: Yes Ordered Tests: Active Orders 24 hr Category Date Time Status RIBS UNILATERAL Stat Exams 05/18/24 13:59 Completed Medication Summary Discontinued Medications Generic Name Dose Route Start Last Admin Trade Name Freq PRN Reason Stop Dose Admin Orphenadrine Citrate 60 mg 05/18/24 14:27 Orphenadrine Citrate 60 Mg/2 Ml Vial IM 05/18/24 14:28 STAT ONE Oxycodone/Acetaminophen 1 tab 05/18/24 14:27 Oxycodone Hcl/Apap 5 Mg/325 Mg Tablet PO 05/18/24 14:28 STAT STA Prednisone 20 mg 05/18/24 14:27 Prednisone 20 Mg Tablet PO 05/18/24 14:28 STAT ONE - Progress Progress: improved, pain not gone completely Progress Note: 05/18/24 14:23 I medical decision making and the assignment of low complexity to this patient's medical issue today is based on review of the patient's past medical history, review of the patient's medication list, review the patient drug allergy list, history present illness and physical findings on examination. The workup in this patient includes left rib x-rays. Differential diagnosis includes but is not limited to left rib fractures, left rib contusion, pneumothorax 05/18/24 14:33 The left rib x-rays were interpreted by the radiologist and I reviewed the impression. The impression states no acute fracture, thoracic spine shows degenerative spondylosis, no hemothorax or pneumothorax. Counseled pt/family regarding: diagnosis, need for follow-up, rad results Medical Desision Making - Independent Historian Additional History obtained from: Spouse - Diagnostic Testing Diagnostic test were ordered, analyzed, and reviewed by me: Yes Radiological Interpretation: Reviewed by me, Teleradiologist Report - Risk of complications The pt has a mod risk of morbidity or mortality based on: Need for prescription drug management - Departure Departure Disposition: Home Clinical Impression: Contusion of rib on left side Condition: Stable Critical Care Time: No Referrals: CIRO REICH [Primary Care Provider] - Follow up/PCP as directed Additional Instructions: Ice pack to tender area 3-4 times a day for the next 48 hours. Take your m edications as prescribed. If there are no contraindications, add ibuprofen 600 mg orally 3 times a day with food for the next 5 days. Call your primary care provider today, 05/18/2024, to make arrangements for a follow-up appointment to be seen in approximately 3 to 5 days. Do not wear a rib belt and do not wrap your ribs with an Richard wrap Prescriptions: Oxycodone HCl/Acetaminophen [Percocet 5-325 mg Tablet] 1 each PO Q12H PRN PRN #6 tablet MDD 2 PRN Reason: Moderate To Severe Pain Orphenadrine Citrate 100 mg [Norflex 100 MG Tablet] 100 mg PO BID #10 tab
[2024-05-18 13:57] VITALS: TEMP 98
--- NOTE | 2024-05-18 14:28 | XRAY ---
Indication: Pain following injury. Comparison: None 2 view left ribs demonstrates osteopenia and mild multilevel thoracic degenerative spondylosis. No acute fracture, suspicious bony lesions, or hemothorax/pneumothorax.
[2024-05-18] MEDS: DELTASONE 20 MG PO ONE (14:35)
[2024-05-18] MEDS: Norflex 60 MG/2 ML IM ONE (14:35)
[2024-05-18] MEDS: PERCOCET TABLET 5/325MG PO STA (14:35)
[2024-05-18] MEDS ORDERED: Norflex 60 MG/2 ML ONE (14:39)
[2024-05-18] MEDS ORDERED: DELTASONE 20 MG ONE (14:39)
[2024-05-18] MEDS ORDERED: PERCOCET TABLET 5/325MG ONE (14:39)
[2024-05-18 14:57] VITALS: BP 145/57; PULSE 72; RESP 18; O2SAT 95
== END 2024-05-18 15:00 | disposition home or self-care (01) ==
LOC: ED 13:40
DX: S20.212A Contusion of left front wall of thorax, initial encounter (principal); W22.8XXA Striking against or struck by other objects, initial encounter; Y93.E9 Activity, other interior property and clothing maintenance; E11.9 Type 2 diabetes mellitus without complications; Z79.891 Long term (current) use of opiate analgesic; Z79.85 Long-term (current) use of injectable non-insulin antidiabetic drugs; Z79.899 Other long term (current) drug therapy
CPT/HCPCS: 71100; 96372; 99283; J2360; A9270-GY